=== PATIENT | male | born 1950 | race African-American/Black ===

== ENCOUNTER 2020-04-05 14:13 | Inpatient (IN) | payer MEDICARE, OTHER ==
--- NOTE | 2020-04-05 15:08 | ER Document Report ---
ED Medical Screen (RME) - General Chief Complaint: Facial Injury Stated Complaint: FALL/FACIAL PAIN Time Seen by Provider: 04/05/20 15:00 Notes: HPI: 69-year-old male with history of type 2 diabetes, hypertension, CAD, high cholesterol, CABG x5 in 1990 presenting for evaluation of a syncopal episode with head and facial injury today. Patient states incident occurred around 11 AM at a gas station. Was going into the store, "felt funny" and then passed out striking his left face on the floor. EMS was not called. Did not have chest pain shortness of breath or sensation of heart beating quickly or irregularly just prior to the syncopal episode. Patient is unsure of how long he was unconscious. Patient states he hit the floor hard enough that he did crack several of the teeth on his upper denture. Denies other injuries or complaints. PHYSICAL EXAMINATION: Bruising and soft tissue swelling to the left inferior periorbital region with tenderness on palpation. Alert and oriented x3. Regular rate and rhythm lung sounds are clear to auscultation moves all extremities well x4 I have greeted and performed a rapid initial assessment of this patient. A comprehensive ED assessment and evaluation of the patient, analysis of test results and completion of medical decision making process will be conducted by an additional ED providers. - Related Data Allergies/Adverse Reactions: No Known Allergies Allergy (Verified 04/05/20 15:01) Physical Exam - Vital signs Vitals: Temp Pulse Resp BP Pulse Ox 97.8 F 82 16 133/79 H 99 04/05/20 14:29 04/05/20 14:29 04/05/20 14:29 04/05/20 14:29 04/05/20 14:29 Course - Vital Signs Vital signs: Temp Pulse Resp BP Pulse Ox 97.8 F 82 16 133/79 H 99 04/05/20 14:29 04/05/20 14:29 04/05/20 14:29 04/05/20 14:29 04/05/20 14:29
[2020-04-05 15:44] LABS: ABSOLUTE MONOCYTES (AUTO) 0.7 10^3/uL (0.1-1.4); ABSOLUTE NEUT (AUTO) 5.4 10^3/uL (1.7-8.2); BASOPHILS % (AUTO) 0.6 % (0-2); EOSINOPHILS % (AUTO) 0.5 % (0-6); HEMATOCRIT 28.1 % (37.9-51.0); LYMPHOCYTES % (AUTO) 13.8 % (13-45); MEAN CORPUSCULAR HEMOGLOBIN 25.4 pg (27.0-33.4); MEAN CORPUSCULAR HGB CONC 32.1 g/dL (32.0-36.0); MEAN CORPUSCULAR VOLUME 79 fl (80-97); MONOCYTES % (AUTO) 9.7 % (3-13); PLATELET COUNT 234 10^3/uL (150-450); RED BLOOD COUNT 3.54 10^6/uL (4.35-5.55); RED CELL DISTRIBUTION WIDTH 18.2 % (11.5-14.0); SEGMENTED NEUTROPHILS % (AUTO) 75.4 % (42-78); TOTAL CELLS COUNTED % (AUTO) 100 %; WHITE BLOOD COUNT 7.1 10^3/uL (4.0-10.5)
[2020-04-05 15:46] LABS: APPEARANCE,URINE CLEAR; BILIRUBIN,URINE NEGATIVE (NEGATIVE); COLOR,URINE YELLOW; GLUCOSE, URINE NEGATIVE (NEGATIVE); KETONES,URINE NEGATIVE (NEGATIVE); LEUKOCYTE ESTERASE,URINE NEGATIVE (NEGATIVE); NITRITE,URINE NEGATIVE (NEGATIVE); PROTEIN,URINE 100 mg/dL (NEGATIVE)
[2020-04-05 15:48] LABS: INTERNATIONAL RATION (INR) 1.22; PROTHROMBIN TIME 15.6 SEC (11.4-15.4)
--- NOTE | 2020-04-05 15:57 | RADIOLOGY REPORT (SQ) ---
EXAM DESCRIPTION: CT HEAD WITHOUT IMAGES COMPLETED DATE/TIME: 04/05/2020 3:46 pm REASON FOR STUDY: syncope COMPARISON: None. TECHNIQUE: Axial images acquired through the brain without intravenous contrast. Images reviewed wi th bone, brain and subdural windows. Additional sagittal and coronal reconstructions were generated. Images stored on PACS. All CT scanners at this facility use dose modulation, iterative reconstruction, and/or weight based d osing when appropriate to reduce radiation dose to as low as reasonably achievable (ALARA). [facility]: Dose Right [facility]: CareDose [facility]: Dose Right [facility]: Teradose 4D [facility]: Dctio RADIATION DOSE: CT Rad equipment meets quality standard of care and radiation dose reduction techniq ues were employed. CTDIvol: 53.2 mGy. DLP: 964 mGy-cm. mGy. LIMITATIONS: None. FINDINGS: VENTRICLES: Prominent. CEREBRUM: No masses. No hemorrhage. No midline shift. Areas of low density in the white matter mos t likely due to chronic micro-vascular ischemic change. No evidence for acute infarction. CEREBELLUM: No masses. No hemorrhage. No alteration of density. No evidence for acute infarction. EXTRAAXIAL SPACES: Mild age-related involutional change. No fluid collections. No masses. ORBITS AND GLOBE: No intra- or extraconal masses. Normal contour of globe without masses. CALVARIUM: No fracture. PARANASAL SINUSES: No fluid or mucosal thickening. SOFT TISSUES: No mass or hematoma. OTHER: No other significant finding. IMPRESSION: MILD CHRONIC CHANGES OF ATROPHY AND MICROVASCULAR ISCHEMIA. NO ACUTE PROCESS. EVIDENCE OF ACUTE STROKE: NO. TECHNICAL DOCUMENTATION: JOB ID: [id number] Quality ID # [id number]: Final reports with documentation of one or more dose reduction techniques (e.g., Au tomated exposure control, adjustment of the mA and/or kV according to patient size, use of iterative reconstruction technique) 2010 [employer]- All Rights Reserved Reading location - IP/workstation name: [email or web address]
--- NOTE | 2020-04-05 15:59 | RADIOLOGY REPORT (SQ) ---
EXAM DESCRIPTION: CT CERVICAL SPINE WITHOUT IMAGES COMPLETED DATE/TIME: 04/05/2020 3:46 pm REASON FOR STUDY: trauma COMPARISON: None. TECHNIQUE: Axial images acquired through the cervical spine without intravenous contrast. Images re viewed with lung, soft tissue and bone windows. Reconstructed coronal and sagittal MPR images review ed. Images stored on PACS. All CT scanners at this facility use dose modulation, iterative reconstruction, and/or weight based d osing when appropriate to reduce radiation dose to as low as reasonably achievable (ALARA). [facility]: Dose Right [facility]: CareDose [facility]: Dose Right [facility]: Teradose 4D [facility]: [employer] RADIATION DOSE: CT Rad equipment meets quality standard of care and radiation dose reduction techniq ues were employed. CTDIvol: 21.8 mGy. DLP: 459 mGy-cm. mGy. LIMITATIONS: Motion. FINDINGS: ALIGNMENT: Reversal of the lordotic curve. MINERALIZATION: Osteopenia. VERTEBRAL BODIES: No fractures or dislocation. DISCS: Multilevel disc space narrowing with osteophytes. FACETS, LATERAL MASSES, POSTERIOR ELEMENTS: Facet arthropathy. No fractures. No dislocation. No ac servando findings. HARDWARE: None in the spine. VISUALIZED RIBS: No fractures. LUNG APICES AND SOFT TISSUES: No significant or acute findings. OTHER: No other significant finding. IMPRESSION: CHRONIC DEGENERATIVE CHANGES. NO ACUTE FINDINGS. TECHNICAL DOCUMENTATION: JOB ID: [id number] Quality ID # 436: Final reports with documentation of one or more dose reduction techniques (e.g., Au tomated exposure control, adjustment of the mA and/or kV according to patient size, use of iterative reconstruction technique) 2010 [employer]- All Rights Reserved Reading location - IP/workstation name: [email or web address]
--- NOTE | 2020-04-05 16:01 | RADIOLOGY REPORT (SQ) ---
EXAM DESCRIPTION: CHEST SINGLE VIEW IMAGES COMPLETED DATE/TIME: 04/05/2020 3:53 pm REASON FOR STUDY: syncope COMPARISON: None. EXAM PARAMETERS: NUMBER OF VIEWS: One view. TECHNIQUE: Single frontal radiographic view of the chest acquired. RADIATION DOSE: NA LIMITATIONS: None. FINDINGS: LUNGS AND PLEURA: Blunting of the left costophrenic angle. No evidence of pulmonary edema or pneumonia. MEDIASTINUM AND HILAR STRUCTURES: No masses. Contour normal. HEART AND VASCULAR STRUCTURES: Cardiomegaly. No evidence of failure. BONES: No acute findings. HARDWARE: CABG. OTHER: No other significant finding. IMPRESSION: NO ACUTE RADIOGRAPHIC FINDING IN THE CHEST. TECHNICAL DOCUMENTATION: JOB ID: [id number] 2010 [employer]- All Rights Reserved Reading location - IP/workstation name: [email or web address]
[2020-04-05 16:08] LABS: ALBUMIN 3.8 g/dL (3.5-5.0); ALKALINE PHOSPHATASE 82 U/L (38-126); ANION GAP 11 (5-19); ASPARTATE AMINO TRANSFERASE 49 U/L (17-59); BILIRUBIN,DIRECT 0.3 mg/dL (0.0-0.4); BILIRUBIN,TOTAL 0.5 mg/dL (0.2-1.3); BLOOD UREA NITROGEN 16 mg/dL (7-20); CALCIUM 8.6 mg/dL (8.4-10.2); CARBON DIOXIDE 25 mmol/L (22-30); CHLORIDE 101 mmol/L (98-107); GLUCOSE 131 mg/dL (75-110); POTASSIUM 4.1 mmol/L (3.6-5.0); TOTAL PROTEIN 7.3 g/dL (6.3-8.2)
--- NOTE | 2020-04-05 16:39 | ER Document Report ---
ED General <KAYLEE PATEL - Last Filed: 04/05/20 20:02> <CAITY SANTILLAN - Last Filed: 04/05/20 20:31> - General Chief Complaint: Facial Injury Stated Complaint: FALL/FACIAL PAIN Time Seen by Provider: 04/05/20 15:00 Primary Care Provider: OMID,ELVIN [Primary Care Provider] - Follow up as needed - HPI Notes: 69-year-old male with history of hypertension, diabetes, obesity, peripheral v ascular disease, multiple stents in his legs and his heart on Plavix to the ED with complaints of syncopal episode today. Patient states that he was in a gas station and felt slightly fatigued and then passed out. Denies feeling dizzy or having any chest pain, shortness of breath, lightheadedness. He states he does not typically pass out. He denies any chest pain or shortness of breath now. H e denies any fevers, chills, cough. Does admit that he hit his face on the left cheek and broke his upper dentures. Does admit to swollen legs but states his legs are swollen often. Denies any exertional shortness of breath. (KAYLEE PATEL) - Related Data Allergies/Adverse Reactions: No Known Allergies Allergy (Verified 04/05/20 15:01) Past Medical History - General Information source: Patient - Social History Smoking Status: Former Smoker Frequency of alcohol use: None Drug Abuse: None Family History: DM, Hypertension Endocrine Medical History: Reports: Hx Diabetes Mellitus Type 2 Past Surgical History: Reports: Hx Cardiac Catheterization, Hx Cardiac Surgery - bypass, Hx Vascular Surgery <KAYLEE PATEL - Last Filed: 04/05/20 20:02> Review of Systems - Review of Systems Constitutional: denies: Chills, Fever Cardiovascular: Syncope. denies: Chest pain, Palpitations, Dizziness, Lightheaded Respiratory: denies: Cough, Hurts to breathe, Short of breath Gastrointestinal: denies: Abdominal pain, Diarrhea, Nausea, Vomiting Musculoskeletal: Leg swelling Skin: No symptoms reported Neurological/Psychological: Lost consciousness. denies: Weakness, Headaches, Numbness -: Yes All other systems reviewed and negative <KAYLEE PATEL - Last Filed: 04/05/20 20:02> Physical Exam - Vital signs Interpretation: Normal - General General appearance: Appears well, Alert In distress: None - HEENT Head: Normocephalic, Atraumatic Eyes: Normal Pupils: PERRL Ears: Normal External canal: Normal Sinus: Normal Nasal: Normal Mouth/Lips: Normal Pharynx: Normal. No: Uvular edema, Potential airway comprom. Neck: Normal, Supple. No: Lymphadenopathy - Respiratory Respiratory status: No respiratory distress Chest status: Nontender. No: Accessory muscle use Breath sounds: Normal. No: Rales, Rhonchi, Wheezing Chest palpation: Normal - Cardiovascular Rhythm: Regular Heart sounds: Normal auscultation Murmur: No - Abdominal Inspection: Normal, Morbidly Obese Distension: No distension Bowel sounds: Normal Tenderness: Nontender. No: Tender, McBurney's point, Sofia's sign Organomegaly: No organomegaly - Back Back: Normal, Nontender - Extremities General upper extremity: Normal inspection, Nontender, Normal color, Normal ROM, Normal temperature General lower extremity: Normal inspection, Nontender, Normal color, Normal ROM, Normal temperature, Normal weight bearing - Neurological Neuro grossly intact: Yes Cognition: Normal Orientation: AAOx4 Lupis Coma Scale Eye Opening: Spontaneous [place] Coma Scale Verbal: Oriented [place] Coma Scale Motor: Obeys Commands [place] Coma Scale Total: 15 Speech: Normal Cranial nerves: Normal. No: Facial palsy Cerebellar coordination: Normal Motor strength normal: LUE, RUE, LLE, RLE Additional motor exam normals: Equal wet machine tender. No: Pronator drift Sensory: Normal - Psychological Associated symptoms: Normal affect, Normal mood - Skin Skin Temperature: Warm Skin Moisture: Dry Skin Color: Normal <KAYLEE PATEL - Last Filed: 04/05/20 20:02> - Vital signs Vitals: Temp Pulse Resp BP Pulse Ox 97.8 F 82 16 133/79 H 99 04/05/20 14:29 04/05/20 14:29 04/05/20 14:29 04/05/20 14:29 04/05/20 14:29 - HEENT Notes: There is a noted bruise to the left cheek under the eye with ecchymosis and edema. It is mildly tender to palpation. There is no step-off or crepitus. (KAYLEE PATEL) - Cardiovascular Notes: 1-2+ pitting edema bilaterally (KAYLEE PATEL) - Back Notes: Nontender to palpation over the midline cervical, thoracic, lumbar spine. No step-off or deformity. (KAYLEE PATEL) Course - Laboratory Result Diagrams: 04/05/20 15:26 04/05/20 15:26 - Diagnostic Test Radiology reviewed: Image reviewed, Reports reviewed <KAYLEE PATEL - Last Filed: 04/05/20 20:02> - Laboratory Result Diagrams: 04/05/20 15:26 04/05/20 15:26 <CAITY SATNILLAN - Last Filed: 04/05/20 20:31> - Re-evaluation Re-evalutation: 04/05/20 19:[address] green. She would like to get a BMP on the patient as well. Will await repeat troponins as first troponin was 0.119. 04/05/20 20:02 Turned patient over to QUENTIN Santillan. He will await 2nd trop. Plan to try to admit patient for syncope as he is not low risk per [place] Syncope rule and his story is concerning. (KAYLEE PATEL) 04/05/20 20:29 Second troponin is slightly increased from prior at 0.123 although there is is less than a 15% increase. Patient has not had any chest pain, he has no symptoms on reevaluation. I discussed patient's work-up. Because of his lack of comparison for the EKG changes, the borderline troponins, his extensive medical history, and his concerning reported episode of syncope without prodromal symptoms I recommended admission. At first patient was unsure, he asked me to call his , I did call and speak with his , she asked a variety of questions and afterward agreed that we should monitor him here tonight on telemetry. After this patient states agreement with plan. I called and spoke with Dr. Martinez, he states patient can be accepted to telemetry observation as long as I speak to cardiology first and they agree with admission, he asks that I place a consult if they agree. I spoke with Dr. Evans, cardiology on-call, he reviewed the case, he agrees patient can be placed on telemetry observation and he will consult on the patient. Patient accepted to telemetry observation. (CAITY SANTILLAN) - Vital Signs Vital signs: Temp Pulse Resp BP Pulse Ox 97.8 F 82 19 121/77 100 04/05/20 14:29 04/05/20 14:29 04/05/20 19:00 04/05/20 18:18 04/05/20 19:00 - Laboratory Laboratory results interpreted by me: 04/05/20 04/05/20 04/05/20 15:26 15:26 15:26 RBC 3.54 L Hgb 9.0 L Hct 28.1 L MCV 79 L MCH 25.4 L RDW 18.2 H PT 15.6 H Glucose 131 H NT-Pro-B Natriuret Pep Urine Protein Urine Urobilinogen 04/05/20 04/05/20 15:26 19:05 RBC Hgb Hct MCV MCH RDW PT Glucose NT-Pro-B Natriuret Pep 5380 H Urine Protein 100 H Urine Urobilinogen 2.0 H - EKG Interpretation by Me Additional EKG results interpreted by me: 04/05/20 19:22 EKG #1: Rate 82, rhythm sinus with first-degree AV block. Interpretation: T wave inversions and inferior and lateral leads. No prior EKG #2 rate: 77, rhythm: Sinus rhythm with first-degree AV block, interpretation no STEMI, T wave version lateral leads. (KAYLEE PATEL) Discharge <KAYLEE PATEL - Last Filed: 04/05/20 20:02> - Discharge Admitting Provider: Juan (Hospitalist) Unit Admitted: Telemetry <CAITY SANTILLAN - Last Filed: 04/05/20 20:31> - Discharge Clinical Impression: Elevated troponin Episode of syncope Qualifiers: Syncope type: unspecified Qualified Code(s): R55 - Syncope and collapse Condition: Stable Disposition: ADMITTED OBSERVATION Referrals: LOCALMD,NO [Primary Care Provider] - Follow up as needed
--- NOTE | 2020-04-05 17:12 | RADIOLOGY REPORT (SQ) ---
EXAM DESCRIPTION: CT MAXILLOFACIAL WITHOUT IV CONTRAST COMPLETED DATE/TME: 04/05/2020 15:05 CLINICAL HISTORY: 69 years, Male, syncope trauma COMPARISON: CT head performed the same day TECHNIQUE: Noncontrast CT face was acquired. Coronal and sagittal reformations were created. Images stored on PACS. All CT scanners at this facility use dose modulation, iterative reconstruction, and/or weight based dosing when appropriate to reduce radiation dose to as low as reasonably achievable (ALARA). [facility]: Dose Right [facility]: CareDose [facility]: Dose Right [facility]: Teradose 4D [facility]: [employer] LIMITATIONS: None. FINDINGS: Mandible is intact. Medial and lateral pterygoid plates are intact. The zygomatic arches are intact. Nasal bone is intact. Nasal septum is mildly deviated towards the right. Nasal spine is intact. Paranasal sinuses are overall clear. Mastoid air cells are also clear. Mild opacity is noted within the right external auditory canal, indicating cerumen. Middle ear cavities are widely aerated. Limited evaluation of the brain parenchyma reveals mild chronic microvascular ischemic change with generalized atrophy. Globes and orbits show no suspicious finding. Visualized portions of the parotid and submandibular glands show no suspicious finding. No definitive deep cervical lymphadenopathy is appreciated. Calcifications are evident about the bilateral internal carotid arteries. Mild multilevel cervical spondylosis is partially imaged, designated by hypertrophic endplate spurring and facet arthropathy. There is also osteopenia. The bilateral temporomandibular joints are somewhat subluxed anteriorly. Mild soft tissue swelling is noted about the left premaxillary soft tissues. IMPRESSION: Mild left premaxillary soft tissue swelling. Otherwise, no underlying acute facial fracture identified. TECHNICAL DOCUMENTATION: Quality ID # 436: Final reports with documentation of one or more dose reduction techniques (e.g., Automated exposure control, adjustment of the mA and/or kV according to patient size, use of iterative reconstruction technique) copyright 2011 [employer]- All Rights Reserved
[2020-04-05] MEDS ORDERED: MAG HYDROX/AL HYDROX/SIMETH SUSP 30 ML UDCUP PO PRN (20:43)
[2020-04-05] MEDS ORDERED: ONDANSETRON HCL INJ/PF 4 MG/2 ML SDV IV PRN (20:43)
[2020-04-05] MEDS ORDERED: ACETAMINOPHEN 325 MG TABLET PO PRN (20:43)
[2020-04-05] MEDS ORDERED: DEXTROSE 50%-WATER 25 GM/50 ML DISP.SYRIN IV PRN ×2 (20:51)
[2020-04-05] MEDS ORDERED: GLUCAGON,HUMAN RECOMB 1 MG INJ IM PRN (20:51)
[2020-04-05] MEDS ORDERED: DEXTROSE 40% GEL 15 GM TUBE PO PRN ×2 (20:51)
--- NOTE | 2020-04-05 21:18 | PDOC H&P ---
History of Present Illness Admission Date/PCP: 04/05/20 20:36 NO LOCALMD Patient complains of: Loss of consciousness History of Present Illness: ESME ASH is a 69 year old male with history of CAD s/p CABG in 1990, DM 2, distant history of paroxysmal A. fib, HTN, who presents to the hospital for evaluation of syncopal episode. The episode occurred today while he was at the gas station. He went into the gas station and spoke with a cashier greeter after which she went shopping and suddenly passed out after a few minutes. The only prodromal symptom noted was fatigue. He denies any preceding lightheadedness, palpitations, nausea/vomiting, flushing or diaphoresis. He also denies any chest pain or shortness of breath. The episode lasted less than 2 minutes without any subsequent postictal state. Witnesses did not inform him of any seizure-like activities. He did sustain some trauma to his lip and his denture from the fall. Patient denies any orthopnea, PND. He denies any prior history of syncope. Patient is from [place] and drove down to [place] with family. 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 He denies being on any anticoagulants. States he has not had any issues with his A. fib in many years and he is actually off digoxin which he was taking before for this. Past Medical History Cardiac Medical History: Reports: Coronary Artery Disease, Hypertension Denies: Congestive Heart Failure Endocrine Medical History: Reports: Diabetes Mellitus Type 2 Past Surgical History Past Surgical History: Reports: Cardiac Catheterization, Vascular Surgery Social History Smoking Status: Former Smoker Frequency of Alcohol Use: None Hx Recreational Drug Use: No - Advance Directive Resuscitation Status: Full Code Family History Family History: DM, Hypertension Parental Family History Reviewed: Yes Children Family History Reviewed: NA Sibling(s) Family History Reviewed.: Yes Medication/Allergy Allergies/Adverse Reactions: No Known Allergies Allergy (Verified 04/05/20 15:01) Review of Systems Constitutional: PRESENT: fatigue. ABSENT: chills, fever(s) Eyes: ABSENT: visual disturbances Ears: ABSENT: hearing changes Nose, Mouth, and Throat: ABSENT: headache(s) Cardiovascular: PRESENT: edema. ABSENT: chest pain, dyspnea on exertion, orthropnea, palpitations Respiratory: ABSENT: cough, dyspnea Gastrointestinal: ABSENT: abdominal pain, diarrhea, nausea, vomiting Genitourinary: ABSENT: dysuria Musculoskeletal: ABSENT: muscle weakness Integumentary: ABSENT: diaphoresis Neurological: ABSENT: dizziness Psychiatric: ABSENT: anxiety Endocrine: ABSENT: polyuria Physical Exam Vital Signs: Temp Pulse Resp BP Pulse Ox 97.8 F 82 19 121/77 100 04/05/20 14:29 04/05/20 14:29 04/05/20 19:00 04/05/20 18:18 04/05/20 19:00 Intake & Output 04/04/20 04/05/20 04/06/20 06:59 06:59 06:59 Weight 116.573 kg General appearance: PRESENT: no acute distress, cooperative Head exam: PRESENT: normocephalic Eye exam: PRESENT: EOMI Mouth exam: PRESENT: laceration Neck exam: ABSENT: JVD Respiratory exam: PRESENT: clear to auscultation simba, symmetrical, unlabored. ABSENT: accessory muscle use, crackles, rales, rhonchi, stridor, tachypnea, wheezes Cardiovascular exam: PRESENT: RRR, +S1, +S2, systolic murmur - RUSB &LLSB. ABSENT: tachycardia GI/Abdominal exam: PRESENT: soft. ABSENT: rebound, rigid, tenderness Extremities exam: PRESENT: pedal edema Neurological exam: PRESENT: alert, awake, oriented to person, oriented to place, oriented to time, oriented to situation Psychiatric exam: ABSENT: agitated, anxious Focused psych exam: ABSENT: pressured speech Skin exam: ABSENT: jaundice Results Laboratory Results: 04/05/20 15:26 04/05/20 15:26 04/05/20 04/05/20 04/05/20 15:26 15:26 15:26 WBC 7.1 RBC 3.54 L Hgb 9.0 L Hct 28.1 L MCV 79 L MCH 25.4 L MCHC 32.1 RDW 18.2 H Plt Count 234 Seg Neutrophils % 75.4 Sodium 137.4 Potassium 4.1 Chloride 101 Carbon Dioxide 25 Anion Gap 11 BUN 16 Creatinine 1.14 Est GFR ( Amer) > 60 Glucose 131 H Calcium 8.6 Total Bilirubin 0.5 AST 49 Alkaline Phosphatase 82 Total Protein 7.3 Albumin 3.8 Urine Color YELLOW Urine Appearance CLEAR Urine pH 5.0 Ur Specific [place] 1.010 Urine Protein 100 H Urine Glucose (UA) NEGATIVE Urine Ketones NEGATIVE Urine Blood NEGATIVE Urine Nitrite NEGATIVE Ur Leukocyte Esterase NEGATIVE Urine WBC (Auto) 2 Urine RBC (Auto) 1 04/05/20 04/05/20 04/05/20 15:26 19:05 19:05 Troponin I 0.119 0.123 NT-Pro-B Natriuret Pep 5380 H Impressions: Chest X-Ray 04/05/20 15:04 IMPRESSION: NO ACUTE RADIOGRAPHIC FINDING IN THE CHEST. Facial Bones CT 04/05/20 15:05 IMPRESSION: Mild left premaxillary soft tissue swelling. Otherwise, no underlying acute facial fracture identified. TECHNICAL DOCUMENTATION: Quality ID # 436: Final reports with documentation of one or more dose reduction techniques (e.g., Automated exposure control, adjustment of the mA and/or kV according to patient size, use of iterative reconstruction technique) copyright 2011 [employer]- All Rights Reserved Head CT 04/05/20 15:05 IMPRESSION: MILD CHRONIC CHANGES OF ATROPHY AND MICROVASCULAR ISCHEMIA. NO ACUTE PROCESS. EVIDENCE OF ACUTE STROKE: NO. Cervical Spine CT 04/05/20 15:06 IMPRESSION: CHRONIC DEGENERATIVE CHANGES. NO ACUTE FINDINGS. Assessment and Plan - Diagnosis (1) Syncope and collapse Is this a current diagnosis for this admission?: Yes Plan: Trauma work-up from fall with CT head, CT C-spine were unremarkable Seemed very sudden without prodrome could possibly be a cardiac event EKG shows sinus rhythm with first-degree AV block and TWI in lateral leads Admit for observation Blood glucose was 131 on presentation Placed on telemetry Echocardiogram ordered for the morning given heart murmur Check orthostatics Given his recent long trip from [place], will check d-dimer and if elevated, will check CTA chest. (2) Elevated troponin Is this a current diagnosis for this admission?: Yes Plan: Currently denies any chest pain no symptoms. Troponin does show flat elevation of 0.1. He does have history of CAD and CABG but I very much doubt that he is having ACS at this moment. Cardiology to evaluate in the morning. BNP is elevated but patient has no profound signs and symptoms of acute heart failure. He does take a diuretic at home which will be resumed once his brings in his meds. (3) DM2 (diabetes mellitus, type 2) Is this a current diagnosis for this admission?: Yes Plan: States he takes metformin, pre-meal insulin 15 units and nightly 15 units of Lantus Hold metformin. Humalog 15 units pre-meal, Lantus 10 units nightly. Sliding scale insulin and Accu-Cheks. (4) CAD (coronary artery disease) Qualifiers: Coronary Disease-Associated Artery/Lesion type: [place] artery [place] vs. transplanted heart: [place] heart Associated angina: without angina Qualified Code(s): I25.10 - Atherosclerotic heart disease of [place] coronary artery without angina pectoris Is this a current diagnosis for this admission?: Yes Plan: s/p CABG in 1990. Resume aspirin, Plavix, Lopressor, Imdur and statin (5) HTN (hypertension) Qualifiers: Hypertension type: essential hypertension Qualified Code(s): I10 - Essential (primary) hypertension Is this a current diagnosis for this admission?: Yes Plan: Resume losartan (6) Microcytic anemia Is this a current diagnosis for this admission?: Yes Plan: Hb 9. No baseline for comparison. Continue home regimen of ferrous sulfate. Outpatient follow-up. - Time Time Spent with patient: 35 or more minutes Anticipated Discharge Disposition: Home, Self Care Anticipated Discharge Timeframe: within 24 hours
--- NOTE | 2020-04-05 21:25 | ADVANCED CARE ---
- Diagnosis (1) Syncope and collapse Diagnosis Current: Yes (4) CAD (coronary artery disease) Diagnosis Current: Yes Resuscitation Status: Full Code Discussion: Patient and I discussed his current conditions and potential etiologies of his syncope. Discussed CODE STATUS and he opts for full code. Opts for full treatment and is okay with cardioversion/defibrillation in the event of an unstable cardiac arrhythmia. Time Spent: 16 minutes
[2020-04-05] MEDS: INSULIN LISPRO 100 UNIT/ML 3 ML VIAL SUBCUT SCH (22:57)
--- NOTE | 2020-04-05 23:11 | EKG REPORT ---
SEVERITY:- ABNORMAL ECG - SINUS RHYTHM FIRST DEGREE AV BLOCK LEFT ATRIAL ABNORMALITY CONSIDER ANTERIOR INFARCT ABNORMAL T, CONSIDER ISCHEMIA, LATERAL LEADS : Confirmed by: Marisol Harmon MD 05-Apr-2020 23:10:47
--- NOTE | 2020-04-05 23:11 | EKG REPORT ---
SEVERITY:- ABNORMAL ECG - SINUS RHYTHM FIRST DEGREE AV BLOCK PROBABLE LEFT ATRIAL ABNORMALITY CONSIDER ANTERIOR INFARCT REPOL ABNRM SUGGESTS ISCHEMIA, LATERAL LEADS : Confirmed by: Marisol Harmon MD 05-Apr-2020 23:10:40
[2020-04-06] MEDS ORDERED: INSULIN GLARGINE,HUM.REC.ANLOG 1,000 UNIT/10 ML VIAL (PYX) SUBCUT ONE (00:58)
[2020-04-06] MEDS: INSULIN GLARGINE,HUM.REC.ANLOG 1,000 UNIT/10 ML VIAL SUBCUT SCH ×2 (01:04→21:06)
--- NOTE | 2020-04-06 02:41 | RADIOLOGY REPORT (SQ) ---
EXAM DESCRIPTION: CTA chest with contrast CLINICAL HISTORY: 69 years Male, syncope, elevated d dimer. r/o PE COMPARISON: None. TECHNIQUE: Axial images of the chest were performed utilizing intravenous contrast, with sagittal and coronal MIP images and sagittal and coronal reformatted images. This exam was performed according to our departmental dose-optimization program which includes use of Automated Exposure Control, adjustment of the mA and/or kV according to patient size and/or use of iterative reconstruction technique. FINDINGS: There is cardiomegaly. There is evidence of coronary artery disease. There is probable mild pulmonary vascular congestion. There are small bilateral pleural effusions. No evidence of pulmonary embolus. No evidence of aortic dissection. There is no significant adenopathy. IMPRESSION: Cardiomegaly with probable pulmonary vascular congestion and small bilateral pleural effusions.
[2020-04-06 07:00] LABS: HEMATOCRIT 24.8 % (37.9-51.0); MEAN CORPUSCULAR HEMOGLOBIN 25.3 pg (27.0-33.4); MEAN CORPUSCULAR HGB CONC 32.4 g/dL (32.0-36.0); MEAN CORPUSCULAR VOLUME 78 fl (80-97); PLATELET COUNT 202 10^3/uL (150-450); RED BLOOD COUNT 3.18 10^6/uL (4.35-5.55); WHITE BLOOD COUNT 4.9 10^3/uL (4.0-10.5)
[2020-04-06 07:21] LABS: ANION GAP 8 (5-19); BLOOD UREA NITROGEN 13 mg/dL (7-20); CALCIUM 8.5 mg/dL (8.4-10.2); CARBON DIOXIDE 27 mmol/L (22-30); CHLORIDE 102 mmol/L (98-107); GLUCOSE 102 mg/dL (75-110); POTASSIUM 3.7 mmol/L (3.6-5.0)
--- NOTE | 2020-04-06 08:05 | EKG REPORT ---
SEVERITY:- ABNORMAL ECG - SINUS RHYTHM FIRST DEGREE AV BLOCK REPOL ABNRM SUGGESTS ISCHEMIA, LATERAL LEADS : Confirmed by: Lynn Diop 06-Apr-2020 08:04:58
--- NOTE | 2020-04-06 08:05 | PDOC CONSULTATION ---
Consultation Consult Date: 04/06/20 Attending physician:: MARLIN MORRISSEY Provider Consulted: MARISA KIRBY Consult reason:: Syncope History of Present Illness Admission Date/PCP: 04/05/20 20:36 History of Present Illness: ESME ASH is a 69 year old male with history of CAD s/p CABG in 1990, DM 2, distant history of paroxysmal A. fib, hyperlipidemia, hypertension who is consulted to our service for evaluation of syncope. The patient is in [facility] and has an outpatient scraper tender in [place] where he lives. The patient had been in his usual state of health until the day of admission when, while walking to the bathroom at a gas station, he suffered a syncopal event with trauma to his face as described in the hospitalist admission note. He states that he was walking normally and suddenly did not feel well. He tried to grab onto something to prevent his fall but then he lost consciousness. He does not remember falling and specifically denied preceding chest pain, palpitations, diaphoresis, racing heart, lightheadedness. He is not sure how long he was unconscious for but upon awakening he was diaphoretic. This morning he is found walking in his room without cardiac complaints and feeling much better. His telemetry however shows sinus bradycardia with first-degree AV block as well as several episodes of heart rates between 30 and 40 bpm with Wenckebach as well as 2-1 AV block. Physical exam on 04/06/2020: GENERAL: Pleasant and conversational. Oriented x3 with normal mood. Not in acute distress. Well groomed and well developed. Obese. HEENT: Normocephalic, atraumatic. Pupils equal. Sclerae anicteric. Oroph arynx moist. NECK: No JVD. No carotid bruits. LUNGS: Clear to auscultation bilaterally. Normal respiratory effort without the use of accessory muscles or intercostal retractions. CARDIOVASCULAR: Regular rate and rhythm, normal S1 and S2 without delete rubs, or gallops. 3 out of 6 systolic ejection murmur at the apex. PMI not displaced. ABDOMEN: No masses or tenderness to palpation. No bruit. No splenomegaly or hepatomegaly. No abdominal aorta bruit noted. EXTREMITIES: No edema, no cyanosis, no clubbing. +2 pulses femoral and pedal pulses bilaterally. SKIN: No lesions or rashes. MUSCULOSKELETAL: No chest tenderness to palpation. NEUROLOGIC: Nonfocal. No gross sensory or motor deficits bilateral upper or lower extremities. Past Medical History Cardiac Medical History: Reports: Coronary Artery Disease, Hypertension Denies: Congestive Heart Failure Endocrine Medical History: Reports: Diabetes Mellitus Type 2 Psychiatric Medical History: Denies: Depression Past Surgical History Past Surgical History: Reports: Cardiac Catheterization, Vascular Surgery Social History Smoking Status: Former Smoker Frequency of Alcohol Use: None Hx Recreational Drug Use: No - Advance Directive Resuscitation Status: Full Code Family History Family History: DM, Hypertension Parental Family History Reviewed: Yes Children Family History Reviewed: Yes Sibling(s) Family History Reviewed.: Yes Medication/Allergy Home Medications: Aspirin [Ecotrin 81 mg EC Tablet] 81 mg PO DAILY 04/05/20 Atorvastatin Calcium [Lipitor 40 mg Tablet] 40 mg PO QHS 04/05/20 Cilostazol [Pletal 100 Mg Tablet] 100 mg PO BID 04/05/20 Clopidogrel Bisulfate [Plavix] 75 mg PO DAILY 04/05/20 Ezetimibe 10 mg PO DAILY 04/05/20 Ferrous Sulfate [Ferosul] 325 mg PO DAILY 04/05/20 Folic Acid 1 mg PO QAM 04/05/20 Furosemide [Lasix] 40 mg PO DAILY 04/05/20 Isosorbide Mononitrate [Isosorbide Mononitrate ER] 60 mg PO DAILY 04/05/20 Losartan Potassium [Cozaar] 50 mg PO DAILY 04/05/20 Metformin HCl 1,000 mg PO BID 04/05/20 Metoprolol Tartrate [Lopressor 25 mg Tablet] 25 mg PO DAILY 04/05/20 Pioglitazone HCl [Actos] 30 mg PO DAILY 04/05/20 Allergies/Adverse Reactions: No Known Allergies Allergy (Verified 04/05/20 15:01) Physical Exam Vital Signs: Temp Pulse Resp BP Pulse Ox 97.6 F 86 18 139/69 H 100 04/06/20 04:28 04/06/20 04:28 04/06/20 04:28 04/06/20 04:28 04/06/20 04:28 Intake & Output 04/04/20 04/05/20 04/06/20 06:59 06:59 06:59 Weight 115 kg Results Laboratory Results: 04/05/20 15:26 04/05/20 15:26 04/05/20 04/05/20 04/05/20 15:26 15:26 15:26 WBC 7.1 RBC 3.54 L Hgb 9.0 L Hct 28.1 L MCV 79 L MCH 25.4 L MCHC 32.1 RDW 18.2 H Plt Count 234 Seg Neutrophils % 75.4 Sodium 137.4 Potassium 4.1 Chloride 101 Carbon Dioxide 25 Anion Gap 11 BUN 16 Creatinine 1.14 Est GFR ( Amer) > 60 Glucose 131 H Calcium 8.6 Total Bilirubin 0.5 AST 49 Alkaline Phosphatase 82 Total Protein 7.3 Albumin 3.8 Urine Color YELLOW Urine Appearance CLEAR Urine pH 5.0 Ur Specific [place] 1.010 Urine Protein 100 H Urine Glucose (UA) NEGATIVE Urine Ketones NEGATIVE Urine Blood NEGATIVE Urine Nitrite NEGATIVE Ur Leukocyte Esterase NEGATIVE Urine WBC (Auto) 2 Urine RBC (Auto) 1 04/05/20 04/05/20 04/05/20 15:26 19:05 19:05 Troponin I 0.119 0.123 NT-Pro-B Natriuret Pep 5380 H 04/05/20 21:59 Troponin I 0.116 NT-Pro-B Natriuret Pep Impressions: Chest/Abdomen CTA 04/05/20 00:00 IMPRESSION: Cardiomegaly with probable pulmonary vascular congestion and small bilateral pleural effusions. Chest X-Ray 04/05/20 15:04 IMPRESSION: NO ACUTE RADIOGRAPHIC FINDING IN THE CHEST. Facial Bones CT 04/05/20 15:05 IMPRESSION: Mild left premaxillary soft tissue swelling. Otherwise, no underlying acute facial fracture identified. TECHNICAL DOCUMENTATION: Quality ID # 436: Final reports with documentation of one or more dose reduction techniques (e.g., Automated exposure control, adjustment of the mA and/or kV according to patient size, use of iterative reconstruction technique) copyright 2010 [employer]- All Rights Reserved Head CT 04/05/20 15:05 IMPRESSION: MILD CHRONIC CHANGES OF ATROPHY AND MICROVASCULAR ISCHEMIA. NO ACUTE PROCESS. EVIDENCE OF ACUTE STROKE: NO. Cervical Spine CT 04/05/20 15:06 IMPRESSION: CHRONIC DEGENERATIVE CHANGES. NO ACUTE FINDINGS. 04/05/20 15:26 04/05/20 15:26 MCV 79 fl (80-97) L 04/05/20 15:26 MCH 25.4 pg (27.0-33.4) L 04/05/20 15:26 MCHC 32.1 g/dL (32.0-36.0) 04/05/20 15:26 RDW 18.2 % (11.5-14.0) H 04/05/20 15:26 Seg Neutrophils % 75.4 % (42-78) 04/05/20 15:26 Chloride 101 mmol/L (98-107) 04/05/20 15:26 Carbon Dioxide 25 mmol/L (22-30) 04/05/20 15:26 Anion Gap 11 (5-19) 04/05/20 15:26 Est GFR ( Amer) > 60 (>60) 04/05/20 15:26 Glucose 131 mg/dL (75-110) H 04/05/20 15: Calcium 8.6 mg/dL (8.4-10.2) 04/05/20 15: Total Bilirubin 0.5 mg/dL (0.2-1.3) 04/05/20 15:26 AST 49 U/L (17-59) 04/05/20 15:26 Alkaline Phosphatase 82 U/L (38-126) 04/05/20 15:26 Total Protein 7.3 g/dL (6.3-8.2) 04/05/20 15: Albumin 3.8 g/dL (3.5-5.0) 04/05/20 15:26 Urine Color YELLOW 04/05/20 15: Urine Appearance CLEAR 04/05/20 15:26 Urine pH 5.0 (5.0-9.0) 04/05/20 15:26 Ur Specific [place] 1.010 04/05/20 15:26 Urine Protein 100 mg/dL (NEGATIVE) H 04/05/20 15:26 Urine Glucose (UA) NEGATIVE mg/dL (NEGATIVE) 04/05/20 15: Urine Ketones NEGATIVE mg/dL (NEGATIVE) 04/05/20 15: Urine Blood NEGATIVE (NEGATIVE) 04/05/20 15: Urine Nitrite NEGATIVE (NEGATIVE) 04/05/20 15:26 Ur Leukocyte Esterase NEGATIVE (NEGATIVE) 04/05/20 15:26 Urine WBC (Auto) 2 /HPF 04/05/20 15:26 Urine RBC (Auto) 1 /HPF 04/05/20 15:26 04/05/20 04/05/20 04/05/20 15:26 19:05 19:05 Troponin I 0.119 0.123 NT-Pro-B Natriuret Pep 5380 H 04/05/20 21:59 Troponin I 0.116 NT-Pro-B Natriuret Pep Current Medication List Generic Name Dose Route Start Last Admin Trade Name Freq PRN Reason Stop Dose Admin Acetaminophen 975 mg 04/05/20 20:43 Tylenol 325 Mg Tablet PO 05/05/20 20:42 Q4HP PRN FOR PAIN Al Hydrox/Mg Hydrox/Simethicone 15 ml 04/05/20 20:43 Maalox Plus Susp 30 Udcup PO 05/05/20 20:42 Q6HP PRN HEARTBURN Aspirin 81 mg 04/06/20 10:00 Ecotrin 81 Mg Ec Tablet PO 05/06/20 09:59 DAILY [facility] Atorvastatin Calcium 40 mg 04/06/20 22:00 Lipitor 40 Mg Tablet PO 05/06/20 21:59 QHS [facility] Cilostazol 100 mg 04/06/20 08:00 Pletal 100 Mg Tablet PO 05/06/20 07:59 BIDACBS [facility] Clopidogrel Bisulfate 75 mg 04/06/20 10:00 Plavix 75 Mg Tablet PO 05/06/20 09:59 DAILY [facility] Dextrose 12.5 gm 04/05/20 20:51 Dextrose Inj 50% Syringe (25 Gm/50 Ml) IV 05/05/20 20:50 PRN PRN FOR BG 50-69 IN ALERT PATIENT Protocol Dextrose 25 gm 04/05/20 20:51 Dextrose Inj 50% Syringe (25 Gm/50 Ml) IV 05/05/20 20:50 PRN PRN PER PROTOCOL Protocol Ezetimibe 10 mg 04/06/20 10:00 Zetia 10 Mg Tablet PO 05/06/20 09:59 DAILY [facility] Enoxaparin Sodium 40 mg 04/06/20 10:00 Lovenox Inj 40 Mg/0.4 Ml Disp.Syrin SUBCUT 05/06/20 09:59 DAILY [facility] Ferrous Sulfate 325 mg 04/06/20 10:00 Feosol 325 Mg Tablet PO 05/06/20 09:59 DAILY [facility] Folic Acid 1 mg 04/06/20 10:00 Folvite 1 Mg Tablet PO 05/06/20 09:59 DAILY [facility] Furosemide 40 mg 04/06/20 10:00 Lasix 40 Mg Tablet PO 11/11/20 09:59 DAILY [facility] Glucagon 1 mg 10/11/20 20:51 Glucagen Inj 1 Mg Vial IM 05/05/20 20:50 PRN PRN Evaluate for BG < 70 Protocol Glucose 15 gm 04/05/20 20:51 Glutose 40% Gel 15 Gm Tube PO 05/05/20 20:50 PRN PRN FOR BG 50-69 IN ALERT PATIENT Protocol Glucose 30 gm 04/05/20 20:51 Glutose 40% Gel 15 Gm Tube PO 05/05/20 20:50 PRN PRN FOR BG < 50 IN ALERT PATIENT Protocol Insulin Glargine 10 unit 04/05/20 22:00 04/06/20 01:04 Lantus Insulin 100 Unit/1 Ml 10 Ml SUBCUT 05/05/20 21:59 10 unit QHS GILBERTO Administration Insulin Human Lispro 0 - 12 unit 04/05/20 22:00 04/05/20 22:57 Humalog Insulin 100 Unit/1 Ml 3 Ml Vial SUBCUT 05/05/20 21:59 Not Given ACHS [facility] Protocol Insulin Human Lispro 15 unit 04/06/20 08:00 Humalog Insulin 100 Unit/1 Ml 3 Ml Vial SUBCUT 05/06/20 07:59 AC [facility] Isosorbide Mononitrate 60 mg 04/06/20 10:00 Imdur 60 Mg Tablet.Er PO 05/06/20 09:59 DAILY [facility] Losartan Potassium 50 mg 04/06/20 10:00 Cozaar 50 Mg Tablet PO 05/06/20 09:59 DAILY [facility] Metoprolol Tartrate 25 mg 04/06/20 10:00 Lopressor 25 Mg Tablet PO 05/06/20 09:59 DAILY [facility] Ondansetron HCl 4 mg 04/05/20 20:43 Zofran Inj/Pf 4 Mg/2 Ml Sdv IV 05/05/20 20:42 Q8HP PRN FOR NAUSEA/VOMITING Sodium Chloride 2.5 ml 04/05/20 22:00 04/06/20 05:04 Saline Flush 2.5 Ml Monoject Prefil Syrin IV 05/05/20 21:59 Not Given Q8 [facility] Discontinued Medications Generic Name Dose Route Start Last Admin Trade Name Freq PRN Reason Stop Dose Admin Insulin Glargine Confirm 04/06/20 00:58 04/06/20 01:07 Lantus (Pyxis) Insulin 100 Unit/1 Ml 10 Ml Administered 04/06/20 00:59 Not Given Dose 1 unit SUBCUT .STK-MED ONE Metoprolol Succinate 25 mg 04/06/20 10:00 Toprol Xl 25 Mg Tab.Sr PO 05/06/20 09:59 DAILY [facility] Assessment & Plan - Diagnosis (1) Syncope and collapse Is this a current diagnosis for this admission?: Yes Plan: Worrisome for cardiac conduction disease particularly in the setting of his telemetry findings overnight. Whether or not this is sick sinus syndrome made worse by the use of low-dose Lopressor versus beta-kallie induced is unclear at this point however given his cardiac history and age I am concerned about the possibility of true sick sinus syndrome with symptomatic bradycardia. I explained all this to the patient who is eager to return to [place] however he was explained that this is potentially deadly and needs to be addressed. He does not want to be transferred to a different hospital. Given that the low pressure may be contributing to his symptoms the medication will be discontinued and we will keep the patient on telemetry with a very low threshold to transfer to a higher echelon of care with EP capabilities if his telemetry continues to show what was already described. Recommendations: -Get records from outpatient scraper tender in [place]. -Discontinue Lopressor and avoid all AV gaby agents. -Continue with cardiac telemetry. -Zoll pads. -Low threshold to transfer to higher echelon of care if telemetry continues to show conduction problems or if the patient becomes symptomatic. (2) CAD (coronary artery disease) Qualifiers: Coronary Disease-Associated Artery/Lesion type: [place] artery [place] vs. transplanted heart: [place] heart Associated angina: without angina Qualified Code(s): I25.10 - Atherosclerotic heart disease of [place] coronary artery without angina pectoris Is this a current diagnosis for this admission?: Yes Plan: The patient remains free of ischemic symptoms with a detectable but indeterminate troponin. Recommendations: -Continue with current medical management except Lopressor. -We will continue to follow-up with you. (3) HTN (hypertension) Qualifiers: Hypertension type: essential hypertension Qualified Code(s): I10 - Essential (primary) hypertension Is this a current diagnosis for this admission?: Yes Plan: His blood pressure is close to his goal. We will continue with current medical management. (4) DM2 (diabetes mellitus, type 2) Is this a current diagnosis for this admission?: Yes Plan: Further management per hospitalist team.
[2020-04-06] MEDS: INSULIN LISPRO 100 UNIT/ML 3 ML VIAL SUBCUT SCH ×7 (09:30→21:02)
[2020-04-06] MEDS: ENOXAPARIN SODIUM INJ 40 MG/0.4 ML DISP.SYRIN SUBCUT SCH (09:34)
[2020-04-06] MEDS: ASPIRIN 81 MG TABLET, ENT COATED PO SCH (09:34)
[2020-04-06] MEDS: FOLIC ACID 1 MG TABLET PO SCH (09:35)
[2020-04-06] MEDS: CLOPIDOGREL BISULFATE 75 MG TABLET PO SCH (09:35)
[2020-04-06] MEDS: EZETIMIBE 10 MG TABLET PO SCH (09:35)
[2020-04-06] MEDS: LOSARTAN POTASSIUM 50 MG TABLET PO SCH (09:35)
[2020-04-06] MEDS: CILOSTAZOL 100 MG TABLET PO SCH ×2 (09:35→18:25)
[2020-04-06] MEDS: ISOSORBIDE MONONITRATE 60 MG TAB.ER.24H PO SCH (09:35)
[2020-04-06] MEDS: FUROSEMIDE 40 MG TABLET PO SCH (09:35)
[2020-04-06] MEDS: FERROUS SULFATE 325 MG TABLET PO SCH (09:35)
[2020-04-06] MEDS ORDERED: METOPROLOL TARTRATE 25 MG TABLET PO SCH (10:00)
[2020-04-06] MEDS ORDERED: CILOSTAZOL 100 MG TABLET PO SCH (10:00)
[2020-04-06] MEDS ORDERED: ISOSORBIDE MONONITRATE 60 MG PO SCH (10:00)
[2020-04-06] MEDS ORDERED: METOPROLOL SUCCINATE 25 MG TAB.SR.24H PO SCH (10:00)
[2020-04-06] MEDS ORDERED: CLOPIDOGREL BISULFATE 75 MG TABLET PO SCH (10:00)
--- NOTE | 2020-04-06 10:46 | PDOC PROGRESS REPORT ---
Subjective Progress Note for:: 04/06/20 Subjective:: 69 year old male with history of CAD s/p CABG in 1990, DM 2, distant history of paroxysmal A. fib, HTN, who presents to the hospital for evaluation of syncopal episode. The episode occurred today while he was at the gas station. He went into the gas station and spoke with a gaming cage cashier after which she went shopping and suddenly passed out after a few minutes. The only prodromal symptom noted was fatigue. He denies any preceding lightheadedness, palpitations, naus ea/vomiting, flushing or diaphoresis. He also denies any chest pain or shortness of breath. The episode lasted less than 2 minutes without any subsequent postictal state. Witnesses did not inform him of any seizure-like activities. He did sustain some trauma to his lip and his denture from the f all. Patient denies any orthopnea, PND. He denies any prior history of syncope. Patient is from [place] and drove down to [place] with family. 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 He denies being on any anticoagulants. States he has not had any issues with his A. fib in many years and he is actually off digoxin which he was taking before for this. 04/06/[id number]-[id number]-old male admitted with syncope. Patient has history of coronary artery disease status post CABG in 1990, type 2 diabetes mellitus, questionable history of paroxysmal A. fib, hypertension. As per the cardiology recommendations metoprolol is on hold. Echocardiogram is pending. Comfortably in the chair communicating well. Not in distress. Reason For Visit: EPISODE OF SYNCOPE,ELEVATED TROPONIN Physical Exam Vital Signs: Temp Pulse Resp BP Pulse Ox 98.7 F 81 19 121/64 98 04/06/20 07:53 04/06/20 08:37 04/06/20 07:53 04/06/20 07:53 04/06/20 07:53 Intake & Output 04/05/20 04/06/20 04/07/20 06:59 06:59 06:59 Weight 115 kg General appearance: PRESENT: no acute distress, morbidly obese Head exam: PRESENT: atraumatic Eye exam: PRESENT: PERRLA Mouth exam: PRESENT: moist, tongue midline Teeth exam: PRESENT: poor dentation Throat exam: PRESENT: tonsillogmegaly Respiratory exam: PRESENT: decreased breath sounds Cardiovascular exam: PRESENT: RRR, systolic murmur. ABSENT: diastolic murmur, rubs GI/Abdominal exam: PRESENT: normal bowel sounds, soft. ABSENT: distended, guarding, mass, organolmegaly, rebound, tenderness Rectal exam: PRESENT: deferred Extremities exam: PRESENT: full ROM, +1 edema - Chronic changes present in the lower extremities., other. ABSENT: calf tenderness, clubbing, pedal edema Neurological exam: PRESENT: alert, awake, oriented to person, oriented to place, oriented to time, oriented to situation, CN II-XII grossly intact. ABSENT: motor sensory deficit Psychiatric exam: PRESENT: appropriate affect, normal mood. ABSENT: homicidal ideation, suicidal ideation Skin exam: PRESENT: dry, intact, warm. ABSENT: cyanosis, rash Results Laboratory Results: 04/06/20 05:50 04/06/20 05:50 04/05/20 04/05/20 04/05/20 15:26 15:26 15:26 WBC 7.1 RBC 3.54 L Hgb 9.0 L Hct 28.1 L MCV 79 L MCH 25.4 L MCHC 32.1 RDW 18.2 H Plt Count 234 Seg Neutrophils % 75.4 Sodium 137.4 Potassium 4.1 Chloride 101 Carbon Dioxide 25 Anion Gap 11 BUN 16 Creatinine 1.14 Est GFR ( Amer) > 60 Glucose 131 H Calcium 8.6 Magnesium Total Bilirubin 0.5 AST 49 Alkaline Phosphatase 82 Total Protein 7.3 Albumin 3.8 Urine Color YELLOW Urine Appearance CLEAR Urine pH 5.0 Ur Specific [place] 1.010 Urine Protein 100 H Urine Glucose (UA) NEGATIVE Urine Ketones NEGATIVE Urine Blood NEGATIVE Urine Nitrite NEGATIVE Ur Leukocyte Esterase NEGATIVE Urine WBC (Auto) 2 Urine RBC (Auto) 1 04/06/20 04/06/20 05:50 05:50 WBC 4.9 RBC 3.18 L Hgb 8.0 L Hct 24.8 L MCV 78 L MCH 25.3 L MCHC 32.4 RDW 18.0 H Plt Count 202 Seg Neutrophils % Sodium 136.9 L Potassium 3.7 Chloride 102 Carbon Dioxide 27 Anion Gap 8 BUN 13 Creatinine 0.88 Est GFR ( Amer) > 60 Glucose 102 Calcium 8.5 Magnesium 2.0 Total Bilirubin AST Alkaline Phosphatase Total Protein Albumin Urine Color Urine Appearance Urine pH Ur Specific [place] Urine Protein Urine Glucose (UA) Urine Ketones Urine Blood Urine Nitrite Ur Leukocyte Esterase Urine WBC (Auto) Urine RBC (Auto) 04/05/20 04/05/20 04/05/20 15:26 19:05 19:05 Troponin I 0.119 0.123 NT-Pro-B Natriuret Pep 5380 H 04/05/20 21:59 Troponin I 0.116 NT-Pro-B Natriuret Pep Impressions: Chest/Abdomen CTA 04/05/20 00:00 IMPRESSION: Cardiomegaly with probable pulmonary vascular congestion and small bilateral pleural effusions. Chest X-Ray 04/05/20 15:04 IMPRESSION: NO ACUTE RADIOGRAPHIC FINDING IN THE CHEST. Facial Bones CT 04/05/20 15:05 IMPRESSION: Mild left premaxillary soft tissue swelling. Otherwise, no underlying acute facial fracture identified. TECHNICAL DOCUMENTATION: Quality ID # 436: Final reports with documentation of one or more dose reduction techniques (e.g., Automated exposure control, adjustment of the mA and/or kV according to patient size, use of iterative reconstruction technique) copyright 2011 [employer]- All Rights Reserved Head CT 04/05/20 15:05 IMPRESSION: MILD CHRONIC CHANGES OF ATROPHY AND MICROVASCULAR ISCHEMIA. NO ACUTE PROCESS. EVIDENCE OF ACUTE STROKE: NO. Cervical Spine CT 04/05/20 15:06 IMPRESSION: CHRONIC DEGENERATIVE CHANGES. NO ACUTE FINDINGS. Assessment and Plan - Diagnosis (1) DM2 (diabetes mellitus, type 2) Is this a current diagnosis for this admission?: No Plan: States he takes metformin, pre-meal insulin 15 units and nightly 15 units of Lantus Hold metformin. Humalog 15 units pre-meal, Lantus 10 units nightly. Sliding scale insulin and Accu-Cheks. 04/06/2020-patient has history of type 2 diabetes mellitus. Latest blood sugar is 119. BMI is more than 39. Diet exercise weight loss lifestyle modifications discussed with the patient. Plan is to continue the present management at this time. (2) HTN (hypertension) Qualifiers: Hypertension type: essential hypertension Qualified Code(s): I10 - Essential (primary) hypertension Is this a current diagnosis for this admission?: No Plan: Resume losartan 04/06/2020-blood pressure this morning is 139/70. Stable. Plan is to continue losartan at this time. (3) Episode of syncope Qualifiers: Syncope type: unspecified Qualified Code(s): R55 - Syncope and collapse Is this a current diagnosis for this admission?: Yes Plan: 04/06/2020-patient admitted for syncope, as per the cardiology patient has first-degree heart block and rhythm last night indicated well for 2 years to 1 block. Plan is to hold metoprolol and to continue to monitor the heart rhythm during the hospital stay. Echocardiogram is pending. Patient alert awake oriented communicating well. (4) Elevated troponin Is this a current diagnosis for this admission?: Yes Plan: Currently denies any chest pain no symptoms. Troponin does show flat elevation of 0.1. He does have history of CAD and CABG but I very much doubt that he is having ACS at this moment. Cardiology to evaluate in the morning. BNP is elevated but patient has no profound signs and symptoms of acute heart failure. He does take a diuretic at home which will be resumed once his brings in his meds. 04/06/2020-patient denies any chest pains. Initial troponin is 0.01, second troponin 0 0.20, third troponin is 0.11 again. Patient is asymptomatic. Blood pressure stable. (5) Morbid obesity Is this a current diagnosis for this admission?: No Plan: 04/06/2020-patient's BMI is more than 39. Diet exercise weight loss lifestyle modifications discussed with the patient. (6) Sick sinus syndrome Is this a current diagnosis for this admission?: Yes Plan: 04/06/2020-EKG indicated for first-degree heart block. surveillance monitor indica dominic to use to 1 heart block last night. As per the cardiology recommendations metoprolol is on hold. To watch for the cardiac rhythm at this time. - Time Anticipated Discharge Disposition: Home, Self Care Anticipated Discharge Timeframe: within 48 hours
[2020-04-06] MEDS: PIOGLITAZONE HCL 30 MG TABLET PO SCH (13:48)
--- NOTE | 2020-04-06 20:50 | XCELERA REPORT ---
[address] [address] Transthoracic Echocardiogram Report Name: ESME ASH Age: 69 yrs Gender: Male : 1950 Patient Status: Inpatient Patient Location: [address] [place] [address] Study Date: 04/06/2020 12:07 PM Height: 67 in Weight: 257 lb BSA: 2.2 m2 Procedure: A complete two-dimensional transthoracic echocardiogram was performed (2D, M-mode, spectral and color flow Doppler). The study was technically difficult with many images being suboptimal in quality. Reason For Study: SYNCOPE. HEART MURMUR Ordering Physician: MARLIN MORRISSEY Performed By: Joceline Earl Interpretation Summary Technically limited study. The left ventricle is moderately dilated. Left ventricular systolic function is severely reduced. EF<25%. Doppler measurements suggest reversible restrictive left ventricular relaxation, which is associated with grade III/IV or moderate diastolic dysfunction. There is severe global hypokinesis of the left ventricle. RV systolic function is moderately reduced. Mild to moderate MR, mild to moderate TR. No prior studies for comparison. MMode/2D Measurements & Calculations RVDd: 2.7 cm LVIDd: 6.4 cm FS: 7.4 % Ao root diam: 3.1 cm IVSd: 1.0 cm LVIDs: 5.9 cm EDV(Teich): 208.8 ml Ao root area: 7.7 cm2 LVPWd: 1.0 cm ESV(Teich): 175.4 ml EF(Teich): 16.0 % Doppler Measurements & Calculations MV E max brittney: MV dec slope: Ao V2 max: LV V1 max P.4 cm/sec 589.0 cm/sec2 170.7 cm/sec 3.1 mmHg MV A max brittney: MV dec time: Ao max PG: LV V1 max: 44.3 cm/sec 0.18 sec 11.7 mmHg 87.3 cm/sec MV E/A: 2.3 MR max brittney: PA V2 max: PI end-d brittney: TR max brittney: 444.1 cm/sec 111.4 cm/sec 158.8 cm/sec 275.3 cm/sec MR max PG: PA max P.0 mmHg TR max P.9 mmHg 30.6 mmHg Left Ventricle The left ventricle is moderately dilated. Left ventricular systolic function is severely reduced. EF<25%. Doppler measurements suggest reversible restrictive left ventricular relaxation, which is associated with grade III/IV or moderate diastolic dysfunction. There is severe global hypokinesis of the left ventricle. Right Ventricle The right ventricle is normal in size, thickness and function. The right ventricular systolic function is moderately reduced. Atria The right atrium is mildly dilated. The left atrial size is normal. The interatrial septum is difficult to see, but appears to be grossly normal. Mitral Valve There is mild mitral leaflet calcification. There is a mild to moderate amount of mitral regurgitation. Aortic Valve The aortic valve is moderately calcified. There is no aortic valve stenosis. No aortic regurgitation is present. Tricuspid Valve The tricuspid valve is not well visualized secondary to technical limitations. There is a mild to moderate amount of tricuspid regurgitation. Pulmonic Valve The pulmonic valve is not well visualized. : MARLIN MORRISSEY Antonio
[2020-04-06] MEDS: ATORVASTATIN CALCIUM 40 MG TABLET PO SCH (21:06)
[2020-04-07] MEDS: INSULIN LISPRO 100 UNIT/ML 3 ML VIAL SUBCUT SCH ×7 (07:34→21:21)
[2020-04-07] MEDS: ENOXAPARIN SODIUM INJ 40 MG/0.4 ML DISP.SYRIN SUBCUT SCH (09:45)
[2020-04-07] MEDS: PIOGLITAZONE HCL 30 MG TABLET PO SCH (09:46)
[2020-04-07] MEDS: ISOSORBIDE MONONITRATE 60 MG TAB.ER.24H PO SCH (09:46)
[2020-04-07] MEDS: LOSARTAN POTASSIUM 50 MG TABLET PO SCH (09:46)
[2020-04-07] MEDS: CILOSTAZOL 100 MG TABLET PO SCH ×2 (09:46→16:36)
[2020-04-07] MEDS: EZETIMIBE 10 MG TABLET PO SCH (09:46)
[2020-04-07] MEDS: CLOPIDOGREL BISULFATE 75 MG TABLET PO SCH (09:46)
[2020-04-07] MEDS: FERROUS SULFATE 325 MG TABLET PO SCH (09:46)
[2020-04-07] MEDS: FUROSEMIDE 40 MG TABLET PO SCH (09:46)
[2020-04-07] MEDS: ASPIRIN 81 MG TABLET, ENT COATED PO SCH (09:46)
[2020-04-07] MEDS: FOLIC ACID 1 MG TABLET PO SCH (09:46)
[2020-04-07] MEDS: METOPROLOL TARTRATE 25 MG TABLET PO SCH (11:42)
--- NOTE | 2020-04-07 13:30 | PDOC PROGRESS REPORT ---
<AVE RHODES - Last Filed: 04/07/20 17:27> Subjective Progress Note for:: 04/07/20 Subjective:: 04/07/2020: Patient is seen on morning rounds. He is seen walking in his room without complaints. His only question is when he will be able to go home. He is from [place] and planned to drive back 15hours on . He specifically denies any cardiac complaints today including syncopal episodes, chest pain, palpitations, diaphoresis, or lower extremity swelling. Further denies any change in vision, cough, abdominal pain, NVD, or urinary symptoms. Discussed case with nurse, denies concerns or complaints at this time. Pt is followed by Dr. Francisco J Morris ([phone]), cardiology in [place], request records. His PCP is Dr. Maravilla ([phone]). Reason For Visit: EPISODE OF SYNCOPE, SYSTOLIC HEART FAILURE WITH REDUCED EJECTION FRACTION Physical Exam Vital Signs: Temp Pulse Resp BP Pulse Ox 98.0 F 83 17 116/69 99 04/07/20 10:00 04/07/20 07:00 04/06/20 23:47 04/06/20 23:47 04/06/20 23:47 Intake & Output 04/06/20 04/07/20 04/08/20 06:59 06:59 06:59 Intake Total 1807 Output Total 1900 Balance -93 Weight 115 kg 123.8 kg General appearance: PRESENT: no acute distress, cooperative, obese Head exam: PRESENT: atraumatic, normocephalic Eye exam: PRESENT: conjunctiva pink, EOMI, PERRLA. ABSENT: scleral icterus Mouth exam: PRESENT: moist, tongue midline Neck exam: PRESENT: full ROM. ABSENT: carotid bruit, JVD, tenderness Respiratory exam: PRESENT: clear to auscultation simba, symmetrical, unlabored. ABSENT: crackles, rhonchi, tachypnea Cardiovascular exam: PRESENT: RRR, +S1, +S2, systolic murmur - 3/6 at apex. ABSENT: tachycardia Pulses: PRESENT: +2 pedal pulses bilateral GI/Abdominal exam: PRESENT: normal bowel sounds, soft. ABSENT: distended, firm, organolmegaly, tenderness Extremities exam: PRESENT: full ROM. ABSENT: clubbing, pedal edema Musculoskeletal exam: PRESENT: ambulatory, full ROM. ABSENT: deformity, dislocation Neurological exam: PRESENT: alert, awake, oriented to person, oriented to place, oriented to time, oriented to situation, CN II-XII grossly intact. ABSENT: motor sensory deficit Psychiatric exam: PRESENT: appropriate affect, normal mood Skin exam: PRESENT: dry, intact, warm. ABSENT: cyanosis, erythema, rash Results Laboratory Results: 04/06/20 05:50 04/06/20 05:50 04/05/20 04/05/20 04/05/20 15:26 19:05 19:05 Troponin I 0.119 0.123 NT-Pro-B Natriuret Pep 5380 H 04/05/20 21:59 Troponin I 0.116 NT-Pro-B Natriuret Pep Impressions: Chest/Abdomen CTA 04/05/20 00:00 IMPRESSION: Cardiomegaly with probable pulmonary vascular congestion and small bilateral pleural effusions. Chest X-Ray 04/05/20 15:04 IMPRESSION: NO ACUTE RADIOGRAPHIC FINDING IN THE CHEST. Facial Bones CT 04/05/20 15:05 IMPRESSION: Mild left premaxillary soft tissue swelling. Otherwise, no underlying acute facial fracture identified. TECHNICAL DOCUMENTATION: Quality ID # 436: Final reports with documentation of one or more dose reduction techniques (e.g., Automated exposure control, adjustment of the mA and/or kV according to patient size, use of iterative reconstruction technique) copyright 2011 [employer]- All Rights Reserved Head CT 04/05/20 15:05 IMPRESSION: MILD CHRONIC CHANGES OF ATROPHY AND MICROVASCULAR ISCHEMIA. NO ACUTE PROCESS. EVIDENCE OF ACUTE STROKE: NO. Cervical Spine CT 04/05/20 15:06 IMPRESSION: CHRONIC DEGENERATIVE CHANGES. NO ACUTE FINDINGS. 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% Is this a current diagnosis for this admission?: Yes (4) Right heart failure (secondary to left heart failure) Is this a current diagnosis for this admission?: Yes (5) Systolic murmur at cardiac apex Is this a current diagnosis for this admission?: Yes (6) Microcytic anemia Is this a current diagnosis for this admission?: Yes (7) Elevated troponin Is this a current diagnosis for this admission?: Yes (8) Hyponatremia Is this a current diagnosis for this admission?: Yes (9) CAD (coronary artery disease) Qualifiers: Coronary Disease-Associated Artery/Lesion type: [place] artery [place] vs. transplanted heart: [place] heart Associated angina: without angina Qualified Code(s): I25.10 - Atherosclerotic heart disease of [place] coronary artery without angina pectoris Is this a current diagnosis for this admission?: Yes (10) DM2 (diabetes mellitus, type 2) Qualifiers: Diabetes mellitus usp insulin use: with usp use Diabetes mellitus complication status: without complication Qualified Code(s): E11.9 - Type 2 diabetes mellitus without complications; Z79.4 - manager long term care (current) use of insulin Is this a current diagnosis for this admission?: No (11) HTN (hypertension) Qualifiers: Hypertension type: essential hypertension Qualified Code(s): I10 - Essential (primary) hypertension Is this a current diagnosis for this admission?: Yes (12) Morbid obesity Is this a current diagnosis for this admission?: No - Plan Summary Summary: 69 year old male with history of CAD s/p CABG in 1990, DM 2, distant history of paroxysmal A. fib, HTN, who presents to the hospital for evaluation of syncopal episode. The episode occurred 04/05/2020 while he was at the [employer]. He went into the gas station and spoke with a cashier associate after which she went shopping and suddenly passed out after a few minutes. The only prodromal symptom noted was fatigue. He denies any preceding lightheadedness, palpitations, nausea/vomiting, flushing or diaphoresis. He also denies any chest pain or shortness of breath. The episode lasted less than 2 minutes without any subsequent postictal state. Witnesses did not inform him of any seizure-like activities. He did sustain some trauma to his lip and his denture from the fall. Patient denies any orthopnea, PND. He denies any prior history of syncope. Patient is from [place] and drove down to [place] with family. 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 He denies being on any anticoagulants. States he has not had any issues with his A. fib in many years and he is actually off digoxin which he was taking before for this. 04/07/2020: Patient was initially admitted on observation status with dx of syncopal episode. Upon further evaluation with Echocardiogram patient was found to have severe left sided systolic heart failure with LVEF <25%, making patient a candidate for AID. Unfortunately we do not have previous records to compare to as patient is from out of state. Pt is at great risk of sudden cardiac and is requiring life vest at this time. Patient's current cardiac condition puts pt at great risk of deterioration if not appropriately addressed and managed acutely as inpatient. Heart failure, left, with LVEF <=30% / Right heart failure (secondary to left heart failure) Echo 04/06/2020: Left ventricular systolic function reduced with EF <25% -Grade III/IV or moderate diastolic dysfunction -Severe global hypokinesis -RV systolic function moderately reduced -Mild to moderate MR and TR BNP elevated (5380) Discussed case with Dr. Knutson EF significantly reduced at <25%; pt is requiring AID for appropriate treatment Initiated therapy with [place] Resume Metoprolol Life vest ordered Pt requires close monitoring and investigation for AID placement Contact Dr. Francisco J Morris, cardiology in [place], for records Systolic murmur at cardiac apex 3/6 systolic murmur as noted on exam Suspect secondary to mild/moderate MR and TR as indicated on echo Treatment as discussed above Episode of syncope / SSS Syncopal episode 04/05/2020 as discussed above Per cardiology: Telemetry with sinus bradycardia with 1st degree AV heart block with [place] as well as 2-1 AV block EKG 04/05/2020: Sinus rhythm 82bpm with 1st degree heart block No events of sinus bradycardia since observed/reported Continue with constant telemetry Initially suspected syncopal episode secondary to true SSS vs beta kallie induced induced, ECHO as discussed above Metoprolol was held, resumed as discussed above Continue to monitor Microcytic anemia Initial Hb 9 -> 8.0 No baseline for comparison. Continue home regimen of ferrous sulfate. Outpatient follow-up. Hyponatremia Slightly decreased at 136.9 On diuretic, suspect cause Continue to monitor Elevated troponin Initial troponin is 0.01, second troponin 0 0.20, third troponin is 0.11 again. Patient is asymptomatic. Blood pressure stable. CAD (coronary artery disease) Hx of CAD with CABG in 1990. Troponins have stabilized No evidence of ACS at this time Continue with aspirin, Plavix, Lopressor, Imdur and statin DM2 (diabetes mellitus, type 2) Home regimen includes: metformin, pre-meal insulin 15 units and nightly 15 units of Lantus Hold metformin. Humalog 15 units pre-meal, Lantus 10 units nightly. Sliding scale insulin and Accu-Cheks. Diet exercise weight loss lifestyle modifications discussed with the patient. HTN (hypertension) Entresto initiated as discussed above. Stop losartan Monitor BP closely with change in BP medications Morbid obesity BMI: 42 Diet exercise weight loss lifestyle modifications discussed with the patient. Dietitian to see patient - Time Time Spent with patient: 15-24 minutes Medications reviewed and adjusted accordingly: Yes Anticipated Discharge Disposition: f/u with Cardiology at home Anticipated Discharge Timeframe: within 72 hours - Inpatient Certification Based on my medical assessment, after consideration of the patient's comorbidities, presenting symptoms, or acuity I expect that the services needed warrant INPATIENT care.: Yes I certify that my determination is in accordance with my understanding of Medicare's requirements for reasonable and necessary INPATIENT services [42 CFR 412.3e].: Yes Medical Necessity: Failure to Improve With Outpatient Therapy, Significant Comorbidiites Make Outpatient Treatment Too Risky, Need Close Monitoring Due to Risk of Patient Decompensation, Need For Continuous Telemetry Monitoring, Risk of Complication if Not Cared For in Hospital, Risk of Diagnosis Which Will Require Inpatient Eval/Care/Monitoring Post Hospital Care: D/C or Transfer Summary <BALWINDER ALARCON - Last Filed: 04/07/20 17:28> Subjective Reason For Visit: EPISODE OF SYNCOPE,ELEVATED TROPONIN Physical Exam Vital Signs: Temp Pulse Resp BP Pulse Ox 97.6 F 72 19 129/61 H 98 04/07/20 11:09 04/07/20 14:00 04/07/20 11:09 04/07/20 11:09 04/07/20 11:09 Intake & Output 04/06/20 04/07/20 04/08/20 06:59 06:59 06:59 Intake Total 1807 Output Total 1900 Balance -93 Weight 115 kg 123.8 kg Results Laboratory Results: 04/06/20 05:50 04/06/20 05:50 04/05/20 04/05/20 04/05/20 15:26 19:05 19:05 Troponin I 0.119 0.123 NT-Pro-B Natriuret Pep 5380 H 10/11/20 21:59 Troponin I 0.116 NT-Pro-B Natriuret Pep Impressions: Chest/Abdomen CTA 04/05/20 00:00 IMPRESSION: Cardiomegaly with probable pulmonary vascular congestion and small bilateral pleural effusions. Chest X-Ray 04/05/20 15:04 IMPRESSION: NO ACUTE RADIOGRAPHIC FINDING IN THE CHEST. Facial Bones CT 04/05/20 15:05 IMPRESSION: Mild left premaxillary soft tissue swelling. Otherwise, no underlying acute facial fracture identified. TECHNICAL DOCUMENTATION: Quality ID # 436: Final reports with documentation of one or more dose reduction techniques (e.g., Automated exposure control, adjustment of the mA and/or kV according to patient size, use of iterative reconstruction technique) copyright 2011 [employer]- All Rights Reserved Head CT 04/05/20 15:05 IMPRESSION: MILD CHRONIC CHANGES OF ATROPHY AND MICROVASCULAR ISCHEMIA. NO ACUTE PROCESS. EVIDENCE OF ACUTE STROKE: NO. Cervical Spine CT 04/05/20 15:06
[2020-04-07] MEDS ORDERED: INSULIN LISPRO 100 UNIT/ML 3 ML VIAL SUBCUT ONE (16:30)
[2020-04-07] MEDS: SACUBITRIL/VALSARTAN 24 MG/26 MG TABLET PO SCH (18:16)
--- NOTE | 2020-04-07 19:17 | PDOC PROGRESS REPORT ---
Subjective Progress Note for:: 04/07/20 Subjective:: Examined today. He is resting comfortably in bed. Overnight telemetry was reviewed which did not show any evidence of bradycardia. Occasional premature atrial complexes were noted. Some of these PACs were not conducted. Patient denies any chest pain, dyspnea, PND, orthopnea or dizziness. Reason For Visit: EPISODE OF SYNCOPE,ELEVATED TROPONIN Physical Exam Vital Signs: Temp Pulse Resp BP Pulse Ox 98.9 F 75 18 134/64 H 100 04/07/20 15:59 04/07/20 15:59 04/07/20 15:59 04/07/20 15:59 04/07/20 15:59 Intake & Output 04/06/20 04/07/20 04/08/20 06:59 06:59 06:59 Intake Total 1807 1065 Output Total 1900 300 Balance -93 765 Weight 115 kg 123.8 kg General appearance: PRESENT: no acute distress, cooperative Head exam: PRESENT: atraumatic, normocephalic Eye exam: PRESENT: conjunctiva pink, EOMI Teeth exam: PRESENT: poor dentation Respiratory exam: PRESENT: clear to auscultation simba, decreased breath sounds - In bilateral bases., symmetrical, unlabored Cardiovascular exam: PRESENT: RRR, +S1, +S2 Pulses: PRESENT: normal radial pulses GI/Abdominal exam: PRESENT: soft Rectal exam: PRESENT: deferred Musculoskeletal exam: PRESENT: normal inspection Neurological exam: PRESENT: alert, awake, oriented to person, oriented to place, oriented to time, oriented to situation Skin exam: PRESENT: dry, intact Results Laboratory Results: 04/06/20 05:50 04/06/20 05:50 04/05/20 04/05/20 04/05/20 15:26 19:05 19:05 Troponin I 0.119 0.123 NT-Pro-B Natriuret Pep 5380 H 04/05/20 21:59 Troponin I 0.116 NT-Pro-B Natriuret Pep EKG Comments: Overnight telemetry was reviewed. Dominant rhythm is sinus rhythm with first- degree AV block and PACs. There is evidence of Wenckebach periodically. There is no evidence of high-grade AV block, complete heart block or sinus pauses Impressions: Chest/Abdomen CTA 04/05/20 00:00 IMPRESSION: Cardiomegaly with probable pulmonary vascular congestion and small bilateral pleural effusions. Chest X-Ray 04/05/20 15:04 IMPRESSION: NO ACUTE RADIOGRAPHIC FINDING IN THE CHEST. Facial Bones CT 04/05/20 15:05 IMPRESSION: Mild left premaxillary soft tissue swelling. Otherwise, no underlying acute facial fracture identified. TECHNICAL DOCUMENTATION: Quality ID # 436: Final reports with documentation of one or more dose reduction techniques (e.g., Automated exposure control, adjustment of the mA and/or kV according to patient size, use of iterative reconstruction technique) copyright 2011 [employer]- All Rights Reserved Head CT 04/05/20 15:05 IMPRESSION: MILD CHRONIC CHANGES OF ATROPHY AND MICROVASCULAR ISCHEMIA. NO ACUTE PROCESS. EVIDENCE OF ACUTE STROKE: NO. Cervical Spine CT 04/05/20 15:06 IMPRESSION: CHRONIC DEGENERATIVE CHANGES. NO ACUTE FINDINGS. Assessment & Plan - Diagnosis (1) Episode of syncope Qualifiers: Syncope type: unspecified Qualified Code(s): R55 - Syncope and collapse Is this a current diagnosis for this admission?: Yes Plan: In my discussion with the patient he described an extended prodrome before having the actual syncopal episode. He did not have acute onset of symptoms. He described an episode of dizziness when he was on the way to the bathroom at the gas station and then he remembers being down on the floor at the gas station bathroom near some beer bottles. Review of telemetry does not show any evidence of bradycardia arrhythmia. There is no evidence of nonsustained VT. There are occasional premature ventricular contractions. Orthostatic vital signs performed since admission has been negative. We will continue to observe on telemetry. Do feel that reinitiating beta-kallie is necessary given history of coronary artery disease (2) CAD (coronary artery disease) Qualifiers: Coronary Disease-Associated Artery/Lesion type: [place] artery [place] vs. transplanted heart: [place] heart Associated angina: without angina Qualified Code(s): I25.10 - Atherosclerotic heart disease of [place] coronary artery without angina pectoris Is this a current diagnosis for this admission?: Yes Plan: Status post CABG in 1990. No ischemic symptoms. Continue guideline directed medical therapy for cardiac disease (3) Heart failure, left, with LVEF <=30% Is this a current diagnosis for this admission?: Yes Plan: Left ventricular ejection fraction is severely depressed on echocardiogram done this admission and is estimated at approximately 25% Patient claims no knowledge of this. He reports that he has had a yearly echocardiograms and was told that there was nothing amiss. If this finding is new for this patient he requires evaluation for myocardial ischemia and then to be placed on guideline directed therapy for LV dysfunction and congestive heart failure and to be followed to evaluate for candidacy for implantable cardioverter defibrillator. Given LV dysfunction and prior history of CABG and with syncope although the mechanism is not very clear would prefer that the patient be discharged with a wearable defibrillator. This is assuming that further inpatient studies or work-up are not necessary at this point. If on the other hand the LV dysfunction has been longstanding then patient has met criteria for ICD implantation. 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 I have explained to the patient that given the finding of LV dysfunction on echocardiogram close follow-up is necessary and his medication regimen will have to be altered.
[2020-04-07] MEDS: INSULIN GLARGINE,HUM.REC.ANLOG 1,000 UNIT/10 ML VIAL SUBCUT SCH (21:20)
[2020-04-07] MEDS: ATORVASTATIN CALCIUM 40 MG TABLET PO SCH (21:20)
[2020-04-08] MEDS: INSULIN LISPRO 100 UNIT/ML 3 ML VIAL SUBCUT SCH ×4 (10:02→12:21)
[2020-04-08] MEDS: FUROSEMIDE 40 MG TABLET PO SCH (10:11)
[2020-04-08] MEDS: PIOGLITAZONE HCL 30 MG TABLET PO SCH (10:11)
[2020-04-08] MEDS: CILOSTAZOL 100 MG TABLET PO SCH (10:11)
[2020-04-08] MEDS: METOPROLOL TARTRATE 25 MG TABLET PO SCH (10:12)
[2020-04-08] MEDS: CLOPIDOGREL BISULFATE 75 MG TABLET PO SCH (10:12)
[2020-04-08] MEDS: FOLIC ACID 1 MG TABLET PO SCH (10:12)
[2020-04-08] MEDS: EZETIMIBE 10 MG TABLET PO SCH (10:12)
[2020-04-08] MEDS: ISOSORBIDE MONONITRATE 60 MG TAB.ER.24H PO SCH (10:12)
[2020-04-08] MEDS: FERROUS SULFATE 325 MG TABLET PO SCH (10:12)
[2020-04-08] MEDS: SACUBITRIL/VALSARTAN 24 MG/26 MG TABLET PO SCH (10:12)
[2020-04-08] MEDS: ASPIRIN 81 MG TABLET, ENT COATED PO SCH (10:14)
[2020-04-08] MEDS: ENOXAPARIN SODIUM INJ 40 MG/0.4 ML DISP.SYRIN SUBCUT SCH (10:20)
[2020-04-08 13:43] VITALS: BP 133/73
--- NOTE | 2020-04-08 14:10 | PDOC DISCHARGE SUMMARY ---
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) Is this a current diagnosis for this admission?: Yes (5) Systolic murmur at cardiac apex Is this a current diagnosis for this admission?: Yes (6) Microcytic anemia Is this a current diagnosis for this admission?: Yes (7) Elevated troponin Is this a current diagnosis for this admission?: Yes (8) Hyponatremia Is this a current diagnosis for this admission?: Yes (9) CAD (coronary artery disease) Is this a current diagnosis for this admission?: Yes (10) DM2 (diabetes mellitus, type 2) Is this a current diagnosis for this admission?: No (11) HTN (hypertension) Is this a current diagnosis for this admission?: Yes (12) Morbid obesity Is this a current diagnosis for this admission?: No - Assessment Summary: MR. ESME ASH is a 69 year old male with history of CAD s/p CABG in 1990, DM 2, distant history of paroxysmal A. fib (previously treated with anticoagulant and digoxin, not on active therapy), and HTN, who presented to the hospital on 04/05/2020 for evaluation of syncopal episode. Syncopal episode was witnessed, without seizure activity, with prodrome of fatigue only, and with almost immediate return to baseline within 2 minutes. Patient was initially admitted on observation status with dx of syncopal episode. Upon further evaluation with Echocardiogram patient was found to have severe left sided systolic heart failure with LVEF <25%, making patient a candidate for evaluation of implantable cardioverter defibrillator. Patient reported having routine echocardiograms with his credit balance specialist in [place], Dr. Francisco J Morris , but denies reports of abnormalities. Unfortunately both the patient and medical team were unable to get ahold of his credit balance specialist office for access to records to compare. Patient was started on Entresto and we discontinued his Lostartan. Pt's hospitalization course was complicated by single bradycaric episode on telemetry with first degree AV block on EKG. Pt was placed on telemetry for length of visit. Telemetry notable for occasional PVCs without evidence of further bradycardic arrhythmias and nonsustained VT. His Metoprolol was initially withheld and was inevitably resumed, as cleared by cardiology, given history of CAD. Given LV dysfunction and prior history of CABG and with syncope, although mechanism remains unclear, we do feel it necessary patient be discharged with wearable defibrillator. At this time no further inpatient evaluation or treatment advised. Pt provided with prescription for Entresto. Pt was seen by [employer] community engagement representative and was instructed on proper use and management. Pt is educated on low sodium, heart healthy diet. He is to check his blood pressure regularly and educated on daily weights. Pt plans to travel back to [place] tomorrow, via passenger in car, with his family. The need for close follow up and further evaluation/management by credit balance specialist is emphasized. Pt is understanding and agreeable to plan of care. Pt stable for discharge at this time. - Additional Information Resuscitation Status: Full Code Discharge Diet: Cardiac, Diabetic Discharge Activity: Activity As Tolerated, Slowly Increase Activity, Weigh Daily Referrals: LOCAL,NO [NO LOCAL MD] - 04/08/20 (PATIENT IS FROM OUT OF TOWN AND WILL FOLLOW UP WITH PRIMARY CARE PROVIDER UPON RETURNING HOME.) Prescriptions: Sacubitril/Valsartan [Entresto 24 mg/26 mg Tablet] 1 tab PO BID #30 tablet Home Medications: Aspirin [Ecotrin 81 mg EC Tablet] 81 mg PO DAILY 04/05/20 Atorvastatin Calcium [Lipitor 40 mg Tablet] 40 mg PO QHS 04/05/20 Cilostazol [Pletal 100 mg Tablet] 100 mg PO BID 04/05/20 Clopidogrel Bisulfate [Plavix] 75 mg PO DAILY 04/05/20 Ezetimibe 10 mg PO DAILY 04/05/20 Ferrous Sulfate [Ferosul] 325 mg PO DAILY 04/05/20 Folic Acid 1 mg PO QAM 04/05/20 Furosemide [Lasix] 40 mg PO DAILY 04/05/20 Isosorbide Mononitrate [Isosorbide Mononitrate ER] 60 mg PO QAM 04/05/20 Metformin HCl 1,000 mg PO BID 04/05/20 Metoprolol Tartrate [Lopressor 25 mg Tablet] 25 mg PO DAILY 04/05/20 Pioglitazone HCl [Actos] 30 mg PO DAILY 04/05/20 Insulin Aspart [Novolog Flexpen] 0 unit SUBCUT .SLD SCALE 04/06/20 Insulin Glargine,Hum.rec.anlog [Lantus Insulin 100 Unit/1 ml 10 ml] 15 unit SQ QHS 04/06/20 Sennosides [Senna] 8.6 mg PO QHS 04/06/20 Sacubitril/Valsartan [Entresto 24 mg/26 mg Tablet] 1 tab PO BID #30 tablet 04/08/20 History of Present Illiness History of Present Illness: As per HPI documented by Dr. Martinez on 04/05/2020 "69 year old male with history of CAD s/p CABG in 1990, DM 2, distant history of paroxysmal A. fib, HTN, who presents to the hospital for evaluation of syncopal episode. The episode occurred 04/05/2020 while he was at the [employer]. He went into the [employer] and spoke with a vault cashier after which she went shopping and suddenly passed out after a few minutes. The only prodromal symptom noted was fatigue. He denies any preceding lightheadedness, palpitations, nausea/vomiting, flushing or diaphoresis. He also denies any chest pain or shortness of breath. The e pisode lasted less than 2 minutes without any subsequent postictal state. Witnesses did not inform him of any seizure-like activities. He did sustain some trauma to his lip and his denture from the fall. Patient denies any orthopnea, PND. He denies any prior history of syncope. Patient is from [place] and drove down to [place] with family. He follows with his credit balance specialist in [place]. He denies being on any anticoagulants. States he has not had any issues with his A. fib in many years and he is actually off digoxin which he was taking before for this." Physical Exam Vital Signs: Temp Pulse Resp BP Pulse Ox 98.7 F 75 17 102/69 98 04/08/20 11:50 04/08/20 11:50 04/08/20 11:50 04/08/20 11:50 04/08/20 11:50 Intake & Output 04/07/20 04/08/20 04/09/20 06:59 06:59 06:59 Intake Total 1807 2165 480 Output Total 1900 1200 200 Balance -93 965 280 Weight 123.8 kg 116.5 kg General appearance: PRESENT: no acute distress, cooperative, obese Head exam: PRESENT: atraumatic, normocephalic Eye exam: PRESENT: conjunctiva pink, EOMI, PERRLA. ABSENT: scleral icterus Mouth exam: PRESENT: moist, tongue midline Neck exam: PRESENT: full ROM. ABSENT: JVD, tenderness Respiratory exam: PRESENT: clear to auscultation simba, symmetrical, unlabored. ABSENT: crackles, rales, rhonchi, tachypnea, wheezes Cardiovascular exam: PRESENT: RRR, +S1, +S2, systolic murmur - 3/6 at apex. ABSENT: diastolic murmur, rubs, tachycardia GI/Abdominal exam: PRESENT: normal bowel sounds, soft. ABSENT: ascites, distended, firm, guarding, tenderness Rectal exam: ABSENT: deferred Extremities exam: PRESENT: full ROM. ABSENT: calf tenderness, clubbing, pedal edema Musculoskeletal exam: PRESENT: ambulatory, full ROM. ABSENT: deformity, dislocation Neurological exam: PRESENT: alert, awake, oriented to person, oriented to place, oriented to time, oriented to situation. ABSENT: altered Psychiatric exam: PRESENT: appropriate affect, normal mood Skin exam: PRESENT: dry, intact, warm. ABSENT: rash Results Laboratory Results: WBC 4.9 10^3/uL (4.0-10.5) 04/06/20 05:50 RBC 3.18 10^6/uL (4.35-5.55) L 04/06/20 05:50 Hgb 8.0 g/dL (13.5-17.0) L 04/06/20 05:50 Hct 24.8 % (37.9-51.0) L 04/06/20 05:50 MCV 78 fl (80-97) L 04/06/20 05:50 MCH 25.3 pg (27.0-33.4) L 04/06/20 05:50 MCHC 32.4 g/dL (32.0-36.0) 04/06/20 05:50 RDW 18.0 % (11.5-14.0) H 04/06/20 05:50 Plt Count 202 10^3/uL (150-450) 04/06/20 05:50 Lymph % (Auto) 13.8 % (13-45) 04/05/20 15:26 [place] % (Auto) 9.7 % (3-13) 04/05/20 15:26 Eos % (Auto) 0.5 % (0-6) 04/05/20 15:26 Baso % (Auto) 0.6 % (0-2) 04/05/20 15:26 Absolute Neuts (auto) 5.4 10^3/uL (1.7-8.2) 04/05/20 15: Absolute Lymphs (auto) 1.0 10^3/uL (0.5-4.7) 04/05/20 15:26 Absolute Monos (auto) 0.7 10^3/uL (0.1-1.4) 04/05/20 15:26 Absolute Eos (auto) 0.0 10^3/uL (0.0-0.6) 04/05/20 15:26 Absolute Basos (auto) 0.0 10^3/uL (0.0-0.2) 04/05/20 15:26 Seg Neutrophils % 75.4 % (42-78) 04/05/20 15:26 PT 15.6 SEC (11.4-15.4) H 04/05/20 15:26 INR 1.22 04/05/20 15:26 D-Dimer 2.39 ug/mL (0.00-0.50) H 04/05/20 15:26 Sodium 136.9 mmol/L (137-145) L 04/06/20 05:50 Potassium 3.7 mmol/L (3.6-5.0) 04/06/20 05:50 Chloride 102 mmol/L (98-107) 04/06/20 05:50 Carbon Dioxide 27 mmol/L (22-30) 04/06/20 05:50 Anion Gap 8 (5-19) 04/06/20 05:50 BUN 13 mg/dL (7-20) 04/06/20 05:50 Creatinine 0.88 mg/dL (0.52-1.25) 04/06/20 05:50 Est GFR ( Amer) > 60 (>60) 04/06/20 05:50 Est GFR (MDRD) Non-Af > 60 (>60) 04/06/20 05:50 Glucose 102 mg/dL (75-110) 04/06/20 05:50 POC Glucose 169 mg/dL (70-110) H 04/08/20 11:47 Calcium 8.5 mg/dL (8.4-10.2) 04/06/20 05:50 Magnesium 2.0 mg/dL (1.6-2.3) 04/06/20 05:50 Total Bilirubin 0.5 mg/dL (0.2-1.3) 04/05/20 15:26 Direct Bilirubin 0.3 mg/dL (0.0-0.4) 04/05/20 15:26 Neonat Total Bilirubin Not Reportable 04/05/20 15:26 Neonat Direct Bilirubin Not Reportable 04/05/20 15:26 Neonat Indirect Bili Not Reportable 04/05/20 15:26 AST 49 U/L (17-59) 04/05/20 15:26 ALT 35 U/L (<50) 04/05/20 15:26 Alkaline Phosphatase 82 U/L (38-126) 04/05/20 15:26 Troponin I 0.116 ng/mL 04/05/20 21:59 NT-Pro-B Natriuret Pep 5380 pg/mL (<125) H 04/05/20 19:05 Total Protein 7.3 g/dL (6.3-8.2) 04/05/20 15:26 Albumin 3.8 g/dL (3.5-5.0) 04/05/20 15:26 Urine Color YELLOW 04/05/20 15:26 Urine Appearance CLEAR 04/05/20 15:26 Urine pH 5.0 (5.0-9.0) 04/05/20 15:26 Ur Specific [place] 1.010 04/05/20 15:26 Urine Protein 100 mg/dL (NEGATIVE) H 04/05/20 15:26 Urine Glucose (UA) NEGATIVE mg/dL (NEGATIVE) 04/05/20 15:26 Urine Ketones NEGATIVE mg/dL (NEGATIVE) 04/05/20 15:26 Urine Blood NEGATIVE (NEGATIVE) 04/05/20 15:26 Urine Nitrite NEGATIVE (NEGATIVE) 04/05/20 15:26 Urine Bilirubin NEGATIVE (NEGATIVE) 04/05/20 15:26 Urine Urobilinogen 2.0 mg/dL (<2.0) H 04/05/20 15:26 Ur Leukocyte Esterase NEGATIVE (NEGATIVE) 04/05/20 15:26 Urine WBC (Auto) 2 /HPF 04/05/20 15:26 Urine RBC (Auto) 1 /HPF 04/05/20 15:26 Urine Ascorbic Acid NEGATIVE (NEGATIVE) 04/05/20 15:26 04/05/20 04/05/20 04/05/20 15:26 19:05 19:05 Troponin I 0.119 0.123 NT-Pro-B Natriuret Pep 5380 H 04/05/20 21:59 Troponin I 0.116 NT-Pro-B Natriuret Pep EKG Comments: 04/06/2020 08:04 Sinus rhythm, first degree AV block Impressions: Chest/Abdomen CTA 04/05/20 00:00 IMPRESSION: Cardiomegaly with probable pulmonary vascular congestion and small bilateral pleural effusions. Chest X-Ray 04/05/20 15:04 IMPRESSION: NO ACUTE RADIOGRAPHIC FINDING IN THE CHEST. Facial Bones CT 04/05/20 15:05 IMPRESSION: Mild left premaxillary soft tissue swelling. Otherwise, no underlying acute facial fracture identified. TECHNICAL DOCUMENTATION: Quality ID # 436: Final reports with documentation of one or more dose reduction techniques (e.g., Automated exposure control, adjustment of the mA and/or kV according to patient size, use of iterative reconstruction technique) copyright 2011 [employer]- All Rights Reserved Head CT 04/05/20 15:05 IMPRESSION: MILD CHRONIC CHANGES OF ATROPHY AND MICROVASCULAR ISCHEMIA. NO ACUTE PROCESS. EVIDENCE OF ACUTE STROKE: NO. Cervical Spine CT 04/05/20 15:06 IMPRESSION: CHRONIC DEGENERATIVE CHANGES. NO ACUTE FINDINGS. Plan Health Concerns: Given LV dysfunction and prior history of CABG and with syncope, although mechanism remains unclear, we do feel it necessary patient be discharged with wearable defibrillator. 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 Knutson EF significantly reduced at <25%; pt is requiring evaluation as he is a candidate for ICD treatment at this time Continue therapy with [place]ot, discontinue losartan Resume Metoprolol Life vest ordered Pt requires close monitoring and investigation for ICD placement at this time Unable to get ahold of Dr. Francisco J Morris, cardiology in [place], for records Systolic murmur at cardiac apex 3/6 systolic murmur as noted on exam Suspect secondary to mild/moderate MR and TR as indicated on echo Treatment as discussed above Episode of syncope / SSS Syncopal episode 04/05/2020 as discussed above Per cardiology: Telemetry with sinus bradycardia with 1st degree AV heart block with [place] as well as 2-1 AV block EKG 04/05/2020: Sinus rhythm 82bpm with 1st degree heart block No events of sinus bradycardia since observed/reported Continue with constant telemetry Initially suspected syncopal episode secondary to true SSS vs beta kallie induced induced, ECHO as discussed above Metoprolol was initially held, resumed as discussed above Continue to monitor Microcytic anemia Initial Hb 9 -> 8.0 No baseline for comparison. Continue home regimen of ferrous sulfate. Outpatient follow-up. Hyponatremia Slightly decreased at 136.9 Elevated troponin Initial troponin is 0.01, second troponin 0 0.20, third troponin is 0.11 again. Patient is asymptomatic. Blood pressure stable. Pt evaluated and cleared by cardiology. CAD (coronary artery disease) Hx of CAD with CABG in 1990. Troponins have stabilized No evidence of ACS at this time Continue with aspirin, Plavix, Lopressor, Imdur and statin DM2 (diabetes mellitus, type 2) Home regimen includes: metformin, pre-meal insulin 15 units and nightly 15 units of Lantus Home medications were withheld during hospitalization course. Humalog 15 units pre-meal, Lantus 10 units nightly with sliding scale insulin and Accu-Cheks. Diet exercise weight loss lifestyle modifications discussed with the patient. Resume home medications at discharge. HTN (hypertension) Entresto initiated as discussed above. Stop losartan Monitor BP closely with change in BP medications Recommended frequent blood pressure checks by pt, he states he has means of BP check at home. Morbid obesity BMI: 42 Diet exercise weight loss lifestyle modifications discussed with the patient. Goals: Close follow up with cardiology for further evaluation and management. Time Spent: Greater than 30 Minutes Stroke Is this a Stroke Patient?: No Acute Heart Failure Is this a Heart Failure Patient?: Yes Documentation of LVEF assessment?: Yes LVEF: LVEF Less Than or Equal to 35% Anticoagulant Therapy: Yes Discharged on Evidence-Based Beta Blockers: Yes Discharged on ARNI?: Yes Discharged on ARB?: N/A-Discharged on ARNI Discharged on ACEI?: N/A Discharged on ARNI For LVEF <35%, discharged on Aldosterone Antagonist?: No-document contraincation s - f/u with cardiology Reason(s) not discharged on Aldosterone Antagonist: Other - f/u with cardiology Aldosterone Antagonist Reason - Other: f/u with cardiology Follow-up Appointment scheduled within 7 days?: Yes <BALWINDER ALARCON - Last Filed: 04/08/20 15:09> Impression - Admit/DC Date/PCP Admission Date/Primary Care Provider: 04/08/20 08:19 History of Present Illiness History of Present Illness: ESME ASH is a 69 year old male Physical Exam Vital Signs: Temp Pulse Resp BP Pulse Ox 98.7 F 75 17 133/73 H 98 04/08/20 13:38 04/08/20 13:38 04/08/20 13:38 04/08/20 13:38 04/08/20 13:38 Intake & Output 04/07/20 04/08/20 04/09/20 06:59 06:59 06:59 Intake Total 1807 2165 480 Output Total 1900 1200 200 Balance -93 965 280 Weight 123.8 kg 116.5 kg Results Laboratory Results: WBC 4.9 10^3/uL (4.0-10.5) 04/06/20 05:50 RBC 3.18 10^6/uL (4.35-5.55) L 04/06/20 05:50 Hgb 8.0 g/dL (13.5-17.0) L 04/06/20 05:50 Hct 24.8 % (37.9-51.0) L 04/06/20 05:50 MCV 78 fl (80-97) L 04/06/20 05:50 MCH 25.3 pg (27.0-33.4) L 04/06/20 05:50 MCHC 32.4 g/dL (32.0-36.0) 04/06/20 05:50 RDW 18.0 % (11.5-14.0) H 04/06/20 05:50 Plt Count 202 10^3/uL (150-450) 04/06/20 05:50 Lymph % (Auto) 13.8 % (13-45) 04/05/20 15:26 [place] % (Auto) 9.7 % (3-13) 04/05/20 15:26 Eos % (Auto) 0.5 % (0-6) 04/05/20 15:26 Baso % (Auto) 0.6 % (0-2) 04/05/20 15:26 Absolute Neuts (auto) 5.4 10^3/uL (1.7-8.2) 04/05/20 15:26 Absolute Lymphs (auto) 1.0 10^3/uL (0.5-4.7) 04/05/20 15:26 Absolute Monos (auto) 0.7 10^3/uL (0.1-1.4) 04/05/20 15:26 Absolute Eos (auto) 0.0 10^3/uL (0.0-0.6) 04/05/20 15:26 Absolute Basos (auto) 0.0 10^3/uL (0.0-0.2) 04/05/20 15:26 Seg Neutrophils % 75.4 % (42-78) 04/05/20 15:26 PT 15.6 SEC (11.4-15.4) H 04/05/20 15:26 INR 1.22 04/05/20 15:26 D-Dimer 2.39 ug/mL (0.00-0.50) H 04/05/20 15:26 Sodium 136.9 mmol/L (137-145) L 04/06/20 05:50 Potassium 3.7 mmol/L (3.6-5.0) 04/06/20 05:50 Chloride 102 mmol/L (98-107) 04/06/20 05:50 Carbon Dioxide 27 mmol/L (22-30) 04/06/20 05:50 Anion Gap 8 (5-19) 04/06/20 05:50 BUN 13 mg/dL (7-20) 04/06/20 05:50 Creatinine 0.88 mg/dL (0.52-1.25) 04/06/20 05:50 Est GFR ( Amer) > 60 (>60) 04/06/20 05:50 Est GFR (MDRD) Non-Af > 60 (>60) 04/06/20 05:50 Glucose 102 mg/dL (75-110) 04/06/20 05:50 POC Glucose 169 mg/dL (70-110) H 04/08/20 11:47 Calcium 8.5 mg/dL (8.4-10.2) 04/06/20 05:50 Magnesium 2.0 mg/dL (1.6-2.3) 04/06/20 05:50 Total Bilirubin 0.5 mg/dL (0.2-1.3) 04/05/20 15:26 Direct Bilirubin 0.3 mg/dL (0.0-0.4) 04/05/20 15:26 Neonat Total Bilirubin Not Reportable 04/05/20 15:26 Neonat Direct Bilirubin Not Reportable 04/05/20 15:26 Neonat Indirect Bili Not Reportable 04/05/20 15:26 AST 49 U/L (17-59) 04/05/20 15:26 ALT 35 U/L (<50) 04/05/20 15:26 Alkaline Phosphatase 82 U/L (38-126) 04/05/20 15:26 Troponin I 0.116 ng/mL 04/05/20 21:59 NT-Pro-B Natriuret Pep 5380 pg/mL (<125) H 04/05/20 19:05 Total Protein 7.3 g/dL (6.3-8.2) 04/05/20 15:26 Albumin 3.8 g/dL (3.5-5.0) 04/05/20 15:26 Urine Color YELLOW 04/05/20 15:26 Urine Appearance CLEAR 04/05/20 15:26 Urine pH 5.0 (5.0-9.0) 04/05/20 15:26 Ur Specific [place] 1.010 04/05/20 15:26 Urine Protein 100 mg/dL (NEGATIVE) H 04/05/20 15:26 Urine Glucose (UA) NEGATIVE mg/dL (NEGATIVE) 04/05/20 15:26 Urine Ketones NEGATIVE mg/dL (NEGATIVE) 04/05/20 15:26 Urine Blood NEGATIVE (NEGATIVE) 04/05/20 15:26 Urine Nitrite NEGATIVE (NEGATIVE) 04/05/20 15:26 Urine Bilirubin NEGATIVE (NEGATIVE) 04/05/20 15:26 Urine Urobilinogen 2.0 mg/dL (<2.0) H 04/05/20 15:26 Ur Leukocyte Esterase NEGATIVE (NEGATIVE) 04/05/20 15:26 Urine WBC (Auto) 2 /HPF 04/05/20 15:26 Urine RBC (Auto) 1 /HPF 04/05/20 15:26 Urine Ascorbic Acid NEGATIVE (NEGATIVE) 04/05/20 15:26 04/05/20 04/05/20 04/05/20 15:26 19:05 19:05 Troponin I 0.119 0.123 NT-Pro-B Natriuret Pep 5380 H 04/05/20 21:59 Troponin I 0.116 NT-Pro-B Natriuret Pep Impressions: Chest/Abdomen CTA 04/05/20 00:00 IMPRESSION: Cardiomegaly with probable pulmonary vascular congestion and small bilateral pleural effusions. Chest X-Ray 04/05/20 15:04 IMPRESSION: NO ACUTE RADIOGRAPHIC FINDING IN THE CHEST. Facial Bones CT 04/05/20 15:05 IMPRESSION: Mild left premaxillary soft tissue swelling. Otherwise, no underlying acute facial fracture identified. TECHNICAL DOCUMENTATION: Quality ID # 436: Final reports with documentation of one or more dose reduction techniques (e.g., Automated exposure control, adjustment of the mA and/or kV according to patient size, use of iterative reconstruction technique) copyright 2011 [employer]- All Rights Reserved Head CT 04/05/20 15:05 IMPRESSION: MILD CHRONIC CHANGES OF ATROPHY AND MICROVASCULAR ISCHEMIA. NO ACUTE PROCESS. EVIDENCE OF ACUTE STROKE: NO. Cervical Spine CT 04/05/20 15:06
== END 2020-04-08 14:24 | disposition home or self-care (01) | DRG 292 ==
LOC: ER 14:13 → EH 20:36 → 4S 21:50 → OBSVTOIN 04-08 08:19
PROVIDERS: ADMIT Internal Medicine; ATTEND Hospitalist
DX: I11.0 Hypertensive heart disease with heart failure (principal); E87.1 Hypo-osmolality and hyponatremia; Z68.41 Body mass index [BMI] 40.0-44.9, adult; I49.5 Sick sinus syndrome; Z95.1 Presence of aortocoronary bypass graft; E11.51 Type 2 diabetes mellitus with diabetic peripheral angiopathy without gangrene; E66.01 Morbid (severe) obesity due to excess calories; D50.9 Iron deficiency anemia, unspecified; I50.23 Acute on chronic systolic (congestive) heart failure; R01.1 Cardiac murmur, unspecified; R77.8 Other specified abnormalities of plasma proteins; I25.10 Atherosclerotic heart disease of native coronary artery without angina pectoris; I44.0 Atrioventricular block, first degree; I34.0 Nonrheumatic mitral (valve) insufficiency; I36.1 Nonrheumatic tricuspid (valve) insufficiency; E78.5 Hyperlipidemia, unspecified; R55 Syncope and collapse; S00.83XA Contusion of other part of head, initial encounter; W18.30XA Fall on same level, unspecified, initial encounter; Z79.02 Long term (current) use of antithrombotics/antiplatelets; Z79.82 Long term (current) use of aspirin; Z79.84 Long term (current) use of oral hypoglycemic drugs; Z79.899 Other long term (current) drug therapy; Z87.891 Personal history of nicotine dependence; Z95.820 Peripheral vascular angioplasty status with implants and grafts; Y92.89 Other specified places as the place of occurrence of the external cause; Z83.3 Family history of diabetes mellitus; Z82.49 Family history of ischemic heart disease and other diseases of the circulatory system
CPT/HCPCS: 36415; 70450; 70486; 71045; 71275; 72125; 80048; 80053; 81001; 82962; 83735; 83880; 84484; 85025; 85027; 85379; 85610; 93005; 93010; 93306; 99285; G0378; J1650; J1815; J3490